=== PATIENT | female | born 1930 | race Caucasian/White ===

== ENCOUNTER → 2016-08-06 | Outpatient (CLI) | payer MEDICARE | LOC: WI 13:35 | PROVIDERS: ATTEND Internal Medicine | DX: Z12.31 Encounter for screening mammogram for malignant neoplasm of breast (principal) | CPT/HCPCS: 77067; G0202 ==

== ENCOUNTER → 2017-04-07 | Outpatient (CLI) | payer MEDICARE ==
[2017-04-07 17:39] LABS: ABSOLUTE EOSINOPHILS # (AUTO) 0.1 10^3/uL (0.0-0.6); ABSOLUTE LYMPHOCYTES (AUTO) 1.6 10^3/uL (0.5-4.7); ABSOLUTE MONOCYTES (AUTO) 0.4 10^3/uL (0.1-1.4); ABSOLUTE NEUT (AUTO) 4.3 10^3/uL (1.7-8.2); BASOPHILS % (AUTO) 0.5 % (0-2); HEMATOCRIT 25.2 % (36.0-47.0); HEMOGLOBIN 8.3 g/dL (12.0-15.5); HGB HCT DIFFERENCE -0.3; LYMPHOCYTES % (AUTO) 24.1 % (13-45); MEAN CORPUSCULAR HEMOGLOBIN 23.6 pg (27.0-33.4); MEAN CORPUSCULAR HGB CONC 32.8 g/dL (32.0-36.0); MEAN CORPUSCULAR VOLUME 72 fl (80-97); MONOCYTES % (AUTO) 6.5 % (3-13); RED BLOOD COUNT 3.51 10^6/uL (3.72-5.28); RED CELL DISTRIBUTION WIDTH 15.6 % (11.5-14.0); SEGMENTED NEUTROPHILS % (AUTO) 66.9 % (42-78); WHITE BLOOD COUNT 6.5 10^3/uL (4.0-10.5)
[2017-04-07 18:04] LABS: ALANINE AMINOTRANSFERASE 21 U/L (9-52); ALBUMIN 3.1 g/dL (3.5-5.0); ALKALINE PHOSPHATASE 85 U/L (38-126); ANION GAP 10 (5-19); ASPARTATE AMINO TRANSFERASE 14 U/L (14-36); BILIRUBIN,DIRECT 0.2 mg/dL (0.0-0.4); BILIRUBIN,TOTAL 0.2 mg/dL (0.2-1.3); BLOOD UREA NITROGEN 27 mg/dL (7-20); CALCIUM 9.1 mg/dL (8.4-10.2); CARBON DIOXIDE 24 mmol/L (22-30); CHLORIDE 110 mmol/L (98-107); CREATININE RESULT 1.08 mg/dL (0.52-1.25); GLUCOSE 86 mg/dL (75-110); POTASSIUM 4.8 mmol/L (3.6-5.0); SODIUM 144.2 mmol/L (137-145); TOTAL PROTEIN 5.6 g/dL (6.3-8.2)
== END ==
LOC: WC 15:46
PROVIDERS: ATTEND Nurse Practitioner Family
DX: L97.222 Non-pressure chronic ulcer of left calf with fat layer exposed (principal)
CPT/HCPCS: 36415; 80053; 85025

== ENCOUNTER → 2017-04-26 | Outpatient (CLI) | payer MEDICARE ==
--- NOTE | 2017-04-26 14:11 | XCELERA REPORT ---
[address] [address] Lower Extremity Venous Evaluation Name: DOMINICK LUQUE Age: 87 yrs Gender: Female : 1930 Patient Status: Outpatient Patient Location: Study Date: 04/26/2017 10:06 AM Procedure: A bilateral duplex scan of the lower extremity veins was performed. The evaluation included responses to compression and other maneuvers with patient in the supine and standing positions to assess venous insufficiency. Reason For Study: ULCER Ordering Physician: DORITA WEN Performed By: Karolyn Juan Right Sided Venous Evaluation Deep venous system evaluation shows patent veins with no obstruction or significant reflux identified. Sapheno Femoral junction: no reflux. Femoral vein reflux: no reflux. Greater Saphenous vein, Proximal thigh: reflux: no reflux. Greater Saphenous vein, Distal thigh: reflux:no reflux. Greater Saphenous vein, Mid below knee: reflux: 3.6 seconds, 3.4 mm diameter. Greater Saphenous vein, low below knee: reflux: 3.seconds, 3.5 mm diameter. No significant Perforators identified. Left Sided Venous Evaluation Deep venous system evaluatiion shows patent veins with no obstruction or significant reflux identified. Sapheno Femoral junction: no reflux. Femoral vein reflux: no reflux. Greater Saphenous vein, Proximal thigh: reflux: no reflux. Greater Saphenous vein, Distal thigh: reflux: no reflux. Greater Saphenous vein, Proximal below knee: reflux: no reflux. No significant Perforators identified. Leg subcutaneous edema noted. Interpretation Summary No duplex evidence of DVT or obstruction in the bilateral lower extremities. Significant reflux limited to the right below knee Greater Saphenous vein identified. : DORITA WEN > Benjamin Feliz
== END ==
LOC: SP 09:55
PROVIDERS: ATTEND Plastic Surgery
DX: L97.222 Non-pressure chronic ulcer of left calf with fat layer exposed (principal)
CPT/HCPCS: 93970

== ENCOUNTER → 2017-07-07 | Outpatient (CLI) | payer MEDICARE ==
[2017-07-07 13:36] LABS: ALANINE AMINOTRANSFERASE 18 U/L (9-52); ALBUMIN 3.1 g/dL (3.5-5.0); ALKALINE PHOSPHATASE 79 U/L (38-126); ANION GAP 8 (5-19); ASPARTATE AMINO TRANSFERASE 14 U/L (14-36); BLOOD UREA NITROGEN 42 mg/dL (7-20); CALCIUM 9.4 mg/dL (8.4-10.2); CARBON DIOXIDE 24 mmol/L (22-30); CHLORIDE 107 mmol/L (98-107); GLUCOSE 108 mg/dL (75-110); POTASSIUM 5.3 mmol/L (3.6-5.0); SODIUM 138.8 mmol/L (137-145); TOTAL PROTEIN 5.5 g/dL (6.3-8.2)
[2017-07-07 13:37] LABS: BILIRUBIN,TOTAL < 0.1 mg/dL (0.2-1.3)
== END ==
LOC: OD 12:02
PROVIDERS: ATTEND Plastic Surgery
DX: L97.222 Non-pressure chronic ulcer of left calf with fat layer exposed (principal)
CPT/HCPCS: 36415; 80053

== ENCOUNTER → 2017-08-24 | Outpatient (CLI) | payer MEDICARE ==
--- NOTE | 2017-08-25 14:32 | RADIOLOGY REPORT (SQ) ---
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 TECHNIQUE: Blood glucose level was verified. Above dose of FDG was injected intravenously. 2-D seg mented attenuation correction images were obtained from the base of the skull to the midthighs. Nonc ontrast CT images were obtained for attenuation correction and fusion with emission images. CT image s were performed without oral or intravenous contrast and are not sensitive for parenchymal lesions. A series of overlapping emission PET images were obtained. Images reviewed and manipulated at [facility] work station by the radiologist. Images stored on PACS. LIMITATIONS: None. FINDINGS: HEAD AND NECK: No areas of abnormal metabolic activity in the soft tissues of the head and neck. CHEST: No areas of abnormal metabolic activity in the chest. ABDOMEN AND PELVIS: On axial image 155, medial to the left lower quadrant ostomy, a well-circumscribe d 6 x 4.7 cm intermediate density non gastrointestinal tract structure is present, measuring 70 Houns field units. This most likely represents a hematoma. There is a rind of activity along its anterior edge with an SUV of 5. Along the distal sigmoid colon, a 5 cm long segment of increased activity is present without discrete mass. Sigmoid colon activity 5.2 SUV in this area. There is an anal mass measuring about 4 x 3 cm in size on axial image 223, with SUV of 8.8. A 1.4 x 1 cm left inguinal lymph node is present on axial image 207 with SUV 2.7. PROXIMAL LOWER EXTREMITIES: No areas of abnormal metabolic activity in the soft tissues of the lower extremities. BONES: No abnormal metabolic activity in the visualized skeleton. ADDITIONAL CT FINDINGS: Left lower quadrant ostomy. Grullon catheter in the bladder. Right total hip replacement OTHER: Liver background activity 1.8 SUV. Blood pool background activity 1.8 SUV IMPRESSION: No PET-CT evidence of widespread metastatic disease. Increased uptake at the anus corre lates with diagnosis of malignancy. TECHNICAL DOCUMENTATION: JOB ID: [id number]- All Rights Reserved Reading location - IP/workstation name: [email or web address]
== END ==
LOC: RAD 18:49
PROVIDERS: ATTEND Radiology Radiation Oncology
DX: C21.0 Malignant neoplasm of anus, unspecified (principal)
CPT/HCPCS: 78815; A9552

== ENCOUNTER 2017-10-04 20:56 | Inpatient (IN) | payer MEDICARE ==
[2017-10-04 21:30] LABS: AMORPHOUS SEDIMENT,URINE TRACE /HPF; APPEARANCE,URINE CLOUDY; BILIRUBIN,URINE NEGATIVE (NEGATIVE); COLOR,URINE YELLOW; GLUCOSE, URINE NEGATIVE (NEGATIVE); KETONES,URINE NEGATIVE (NEGATIVE); LEUKOCYTE ESTERASE,URINE LARGE (NEGATIVE); NITRITE,URINE NEGATIVE (NEGATIVE); PROTEIN,URINE NEGATIVE (NEGATIVE); URINE SPECIFIC GRAVITY 1.006; UROBILINOGEN,URINE NEGATIVE mg/dL (<2.0)
[2017-10-04 22:33] LABS: ABSOLUTE EOSINOPHILS # (AUTO) 0.1 10^3/uL (0.0-0.6); ABSOLUTE LYMPHOCYTES (AUTO) 1.8 10^3/uL (0.5-4.7); LYMPHOCYTES % (AUTO) 19.2 % (13-45); MEAN CORPUSCULAR VOLUME 81 fl (80-97); TOTAL CELLS COUNTED % (AUTO) 100 %
[2017-10-04 22:34] LABS: ALANINE AMINOTRANSFERASE 18 U/L (9-52); ALBUMIN 3.2 g/dL (3.5-5.0); ALKALINE PHOSPHATASE 94 U/L (38-126); ANION GAP 10 (5-19); ASPARTATE AMINO TRANSFERASE 14 U/L (14-36); BILIRUBIN,DIRECT 0.2 mg/dL (0.0-0.4); BILIRUBIN,TOTAL 0.3 mg/dL (0.2-1.3); BLOOD UREA NITROGEN 25 mg/dL (7-20); CALCIUM 10.3 mg/dL (8.4-10.2); CARBON DIOXIDE 28 mmol/L (22-30); CHLORIDE 102 mmol/L (98-107); GLUCOSE 111 mg/dL (75-110); LIPASE 44.4 U/L (23-300); POTASSIUM 3.6 mmol/L (3.6-5.0); SODIUM 139.7 mmol/L (137-145); TOTAL PROTEIN 6.1 g/dL (6.3-8.2)
[2017-10-04 22:39] LABS: HEMATOCRIT 35.5 % (36.0-47.0); RED BLOOD COUNT 4.39 10^6/uL (3.72-5.28); RED CELL DISTRIBUTION WIDTH 22.5 % (11.5-14.0); WHITE BLOOD COUNT 9.6 10^3/uL (4.0-10.5)
[2017-10-04 22:40] LABS: ABSOLUTE MONOCYTES (AUTO) 0.6 10^3/uL (0.1-1.4); ABSOLUTE NEUT (AUTO) 6.9 10^3/uL (1.7-8.2); BASOPHILS % (AUTO) 0.5 % (0-2); EOSINOPHILS % (AUTO) 1.3 % (0-6); MEAN CORPUSCULAR HEMOGLOBIN 27.4 pg (27.0-33.4); MEAN CORPUSCULAR HGB CONC 33.9 g/dL (32.0-36.0); MONOCYTES % (AUTO) 6.7 % (3-13); PLATELET COUNT 222 10^3/uL (150-450); SEGMENTED NEUTROPHILS % (AUTO) 72.3 % (42-78)
--- NOTE | 2017-10-04 22:44 | ER Document Report ---
ED General - General Chief Complaint: Abdominal Pain Stated Complaint: ABDOMINAL PAIN Time Seen by Provider: 10/04/17 22:43 Mode of Arrival: Medic Information source: Emergency Med Personnel Notes: 87-year-old lady with recent diagnosis of rectal cancer status post colectomy at [facility] who presented from rehab facility for evaluation of possible small bowel obstruction. According to rehab facility notes patient had one episode of vomiting yesterday with associated abdominal pain. According to patient she also had decreased stool output from the colostomy. Pain is lower abdominal, generalized, associated with one episode of emesis, severity of symptoms is 6 out of 10. TRAVEL OUTSIDE OF THE [place] IN LAST 30 DAYS: No - Related Data Allergies/Adverse Reactions: codeine Allergy (Verified 10/05/17 00:22) Penicillins Allergy (Verified 10/05/17 00:22) Past Medical History - Social History Smoking Status: Never Smoker Chew tobacco use (# tins/day): No Frequency of alcohol use: None Drug Abuse: None Family History: Hypertension Patient has suicidal ideation: No Patient has homicidal ideation: No - Past Medical History Cardiac Medical History: Reports: Hx Heart Attack, Hx Hypertension Pulmonary Medical History: Reports: Hx Asthma Renal/ Medical History: Denies: Hx Peritoneal Dialysis Skin Medical History: Reports Hx MRSA Infectious Medical History: Reports: Hx MRSA Past Surgical History: Reports: Hx Abdominal Surgery - colostomly Jul 2017, Hx Appendectomy, Hx Hysterectomy, Hx Orthopedic Surgery - R hip replacement, Hx Tonsillectomy Review of Systems - Review of Systems Notes: REVIEW OF SYSTEMS: CONSTITUTIONAL: -fevers, -chills EENT: -eye pain, -difficulty swallowing, -nasal congestion CARDIOVASCULAR: -chest pain, -syncope. RESPIRATORY: -cough, -SOB GASTROINTESTINAL: + Abdominal pain, -nausea, + vomiting, -diarrhea GENITOURINARY: -dysuria, -hematuria MUSCULOSKELETAL: -back pain, -neck pain SKIN: -rash or skin lesions. HEMATOLOGIC: -easy bruising or bleeding. LYMPHATIC: -swollen, enlarged glands. NEUROLOGICAL: -altered mental status or loss of consciousness, -headache, - neurologic symptoms PSYCHIATRIC: -anxiety, -depression. ALL OTHER SYSTEMS REVIEWED AND NEGATIVE. Physical Exam - Vital signs Vitals: Temp Pulse Resp BP Pulse Ox 98.9 F 56 L 16 182/60 H 97 10/04/17 21:00 10/04/17 21:00 10/04/17 21:00 10/04/17 21:00 10/04/17 21:00 - Notes Notes: Reviewed vital signs and nursing note as charted by RN. CONSTITUTIONAL: Alert, generalized edema HEAD: Normocephalic; atraumatic EYES: PERRL; Conjunctivae clear, sclerae non-icteric ENT: normal nose; NECK: Supple CARD: Regular rate and rhythm; no murmurs, no clicks, no rubs, no gallops; symmetric distal pulses RESP: Normal chest excursion without splinting or tachypnea; breath sounds clear and equal bilaterally ABD/GI: Normal bowel sounds; distended, patient has left colostomy with no stool , finger examination with notable stool within the colostomy site BACK: The back appears normal and is non-tender to palpation EXT: Normal ROM in all joints; non-tender to palpation; no cyanosis, no effusions, no edema SKIN: Normal color for age and race; warm; dry; good turgor; capillary refill < 2 seconds; no acute lesions noted NEURO: .Cranial nerves 3-12 intact. Motor strength 5/5 bilaterally. Sensation intact to touch bilaterally. No pronator drift. Finger to nose intact bilaterally PSYCH: The patient's mood and manner are appropriate. Grooming and personal hygiene are appropriate. Course - Re-evaluation Re-evalutation: Patient with history of rectal cancer status post colostomy here for evaluation of possible small bowel obstruction given abdominal pain, distention as well as vomiting We will obtain basic lab work including CBC, CMP, urinalysis CT scan abdomen and pelvis with oral and IV contrast Pain control with [place], IV hydration 10/05/17 01:35 CT scan consistent with acute small bowel obstruction Discussed the case with surgery on-call, Dr. Larry Cardoso he will evaluate patient at bedside Hold off on NG tube at present time 10/05/17 05:38 Patient was examined by Dr. Cardoso, agree that patient is not a good surgical candidate Recommended aggressive management of her constipation with enemas Recommended IV hydration admission to hospitalist for further management and possible palliative consultation Case discussed with hospitalist, , agree with admission - Vital Signs Vital signs: Temp Pulse Resp BP Pulse Ox 98.9 F 56 L 18 164/58 H 96 10/04/17 21:00 10/04/17 21:00 10/04/17 22:29 10/05/17 03:01 10/05/17 03:01 - Laboratory Result Diagrams: 10/04/17 21:45 10/04/17 21:45 Laboratory results interpreted by me: 10/04/17 10/04/17 10/04/17 21:13 21:45 21:45 Hct 35.5 L RDW 22.5 H BUN 25 H Est GFR (Non-Af Amer) 57 L Glucose 111 H Calcium 10.3 H Total Protein 6.1 L Albumin 3.2 L Urine Blood MODERATE H Ur Leukocyte Esterase LARGE H Discharge - Discharge Clinical Impression: SBO (small bowel obstruction) Disposition: ADMITTED INPATIENT Admitting Provider: Hospitalist Unit Admitted: Medical Floor
[2017-10-04 22:47] LABS: ANISOCYTOSIS 3+; HYPOCHROMASIA SLIGHT; OVALOCYTES 1+; PLATELET COMMENT ADEQUATE; POIKILOCYTOSIS 1+
[2017-10-04 22:48] LABS: PLATELET LARGE PRESENT
[2017-10-04] MEDS ORDERED: MORPHINE SULFATE 10 MG/ML INJ IV ONE (23:17)
[2017-10-04] MEDS ORDERED: HYDROCODONE/ACETAMINOPHEN 5-325 MG TABLET PO ONE (23:35)
[2017-10-04] MEDS ORDERED: PROMETHAZINE HCL INJ 25 MG/1 ML VIAL IV ONE (23:56)
[2017-10-05] MEDS ORDERED: LOSARTAN POTASSIUM 25 MG TABLET PO ONE (00:47)
--- NOTE | 2017-10-05 01:15 | RADIOLOGY REPORT (SQ) ---
EXAM DESCRIPTION: CT ABD/PELVIS WITH IV ORAL COMPLETED DATE/TIME: 10/04/2017 11:56 pm REASON FOR STUDY: abdominal pain COMPARISON: PET-CT from August. TECHNIQUE: CT scan of the abdomen and pelvis performed with intravenous and oral contrast using noah angelia scanning technique with dynamic intravenous contrast injection. Images reviewed with lung, soft t issue, and bone windows. Reconstructed coronal and sagittal MPR images reviewed. Delayed images for e valuation of the urinary system also acquired. All images stored on PACS. All CT scanners at this facility use dose modulation, iterative reconstruction, and/or weight based d osing when appropriate to reduce radiation dose to as low as reasonably achievable (ALARA). [facility]: Dose Right [facility]: CareDose [facility]: Dose Right [facility]: Teradose 4D [facility]: [email or web address] CONTRAST TYPE AND DOSE: contrast/concentration: Isovue 370.00 mg/ml; Total Contrast Delivered: 84.0 ml; Total Saline Delivered: 39.0 ml RENAL FUNCTION: Not available. RADIATION DOSE: CT Rad equipment meets quality standard of care and radiation dose reduction techniq ues were employed. CTDIvol: 16.2 mGy. DLP: 1574 mGy-cm.. LIMITATIONS: None. FINDINGS: LOWER CHEST: Mild left lower lobe subsegmental atelectasis and trace pleural fluid. LIVER: Normal size. No masses. No dilated ducts. SPLEEN: Normal size. No focal lesions. PANCREAS: No masses. No significant calcifications. No adjacent inflammation or peripancreatic fluid collections. Pancreatic duct not dilated. GALLBLADDER: No identified stones by CT criteria. No inflammatory changes to suggest cholecystitis. ADRENAL GLANDS: No significant masses or asymmetry. RIGHT KIDNEY AND URETER: No solid masses. No significant calcification. No hydronephrosis or hydroure ter. LEFT KIDNEY AND URETER: No solid masses. No significant calcification. No hydronephrosis or hydrouret er. AORTA AND VESSELS: Dense atherosclerotic aorta without aneurysm or dissection. Grossly patent major arterial structures. No venous clot detected. RETROPERITONEUM: No retroperitoneal adenopathy, hemorrhage or masses. BOWEL AND PERITONEAL CAVITY: Diffusely distended small bowel loops tracking into the lower abdomen an d pelvis. In the mid pelvis, there is abrupt transition point with subsequent decompressed loops of bowel. Please see axial image 65 and coronal image 27 and adjacent slices. Moderate stool throughou t the colon. No ascites or abnormal gas. The patient has a left lower quadrant colostomy. APPENDIX: Not visualized. PELVIS: Limited due to obscuring metallic artifact from right hip. Grullon catheter in place. ABDOMINAL WALL: No masses. No hernias. BONES: No significant or acute findings. OTHER: No other significant finding. IMPRESSION: 1. Small bowel obstruction. Transition point in the distal small bowel within the pelv is. TECHNICAL DOCUMENTATION: JOB ID: [id number] Quality ID # [id number]: Final reports with documentation of one or more dose reduction techniques (e.g., Au tomated exposure control, adjustment of the mA and/or kV according to patient size, use of iterative reconstruction technique) 2010 [employer]- All Rights Reserved Reading location - IP/workstation name: [email or web address]
[2017-10-05] MEDS ORDERED: NORMAL SALINE 1000 ML 1,000 ML IV ONE (02:19)
--- NOTE | 2017-10-05 02:46 | PDOC CONSULTATION ---
Consultation Consult Date: 10/05/17 Attending physician:: YENIFER KEITH Consult reason:: Bowel obstruction History of Present Illness Admission Date/PCP: IRAIS HOLMAN MD History of Present Illness: DOMINICK LUQUE is a 87 year old female Who is brought to the emergency department by ground rescue because of abdominal pain for several days and one episode of vomiting this morning. Patient is seen at a.m. Wednesday by Dr. Cardoso at the request of the emergency department because of possible bowel obstruction. The patient is not accompanied by anybody as her family is gone home. According to records, and patient's report, she has been at the [facility] for approximately 2 months. [facility] Some of those records are available for review. 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 She also has bilateral lower extremity lymphedema, bilateral ureteral dilatation, anasarca and malnutrition. There are other references to her having undergone a colon resection for sigmoid colon cancer but again this cannot be consistently corroborated by her medical records. The patient is unclear as to what surgery she has had. She states she had 5 surgeon see her at [facility]. Over the last several months she has been seen and also more hospital where she had a PET scan which showed no evidence of metastatic disease. It is unclear as to whether she seen oncology and radiation therapy. Discussions have been held with her and her family regarding CODE STATUS, levels of aggressiveness of care, and even palliative care. In the emergency department she underwent CT scan of the abdomen and pelvis which showed findings consistent with obstipation, possible small bowel obstruction with transition point in the pelvis. Surgery was consulted. Past Medical History Cardiac Medical History: Reports: Myocardial Infarction, Hypertension Pulmonary Medical History: Reports: Asthma Infectious Medical History: Reports: Methicillin-Resistant Staph Aureus Past Surgical History Past Surgical History: Reports: Appendectomy, Hysterectomy, Orthopedic Surgery - R hip replacement, Tonsillectomy Social History Smoking Status: Never Smoker Hx Recreational Drug Use: No Hx Prescription Drug Abuse: No Family History Family History: Hypertension Parental Family History Reviewed: Yes Children Family History Reviewed: Yes Sibling(s) Family History Reviewed.: Yes Medication/Allergy Home Medications: Sulfamethoxazole/Trimethoprim [Bactrim Ds Tablet] 1 each PO BID 10 Days #20 tablet 07/17/17 Allergies/Adverse Reactions: codeine Allergy (Verified 10/05/17 00:22) Penicillins Allergy (Verified 10/05/17 00:22) Review of Systems Eyes: ABSENT: visual disturbances Ears: ABSENT: hearing changes Genitourinary: PRESENT: other - Indwelling Grullon catheter Musculoskeletal: PRESENT: other - Severe scoliosis; patient has not walked in months Neurological: PRESENT: memory loss Physical Exam Vital Signs: Temp Pulse Resp BP Pulse Ox 98.9 F 56 L 18 189/93 H 95 10/04/17 21:00 10/04/17 21:00 10/04/17 22:29 10/05/17 01:31 10/05/17 02:00 Intake & Output 10/03/17 10/04/17 10/05/17 06:59 06:59 06:59 Weight 79.6 kg General appearance: PRESENT: mild distress Head exam: PRESENT: normocephalic Eye exam: PRESENT: EOMI Mouth exam: PRESENT: dry mucosa Neck exam: PRESENT: full ROM Respiratory exam: PRESENT: rhonchi Cardiovascular exam: PRESENT: RRR Pulses: PRESENT: normal carotid pulses, normal femoral pulses GI/Abdominal exam: PRESENT: other - Moderate distention; well-healed midline scar; ostomy appliance in place; bag removed; ostomy digitalize with lubricated index finger. There was some stricture going through the fascia which I opened up gently. Tolerated well Extremities exam: PRESENT: other - Indwelling catheter in place marked lower extremity edema; chronic lymphatic edema to the feet and ankles Psychiatric exam: PRESENT: appropriate affect Skin exam: PRESENT: warm, other - Anasarca Results Laboratory Results: 10/04/17 21:45 10/04/17 21:45 10/04/17 10/04/17 10/04/17 21:13 21:45 21:45 WBC 9.6 RBC 4.39 Hgb 12.0 Hct 35.5 L MCV 81 MCH 27.4 MCHC 33.9 RDW 22.5 H Plt Count 222 Seg Neutrophils % 72.3 Lymphocytes % 19.2 Monocytes % 6.7 Eosinophils % 1.3 Basophils % 0.5 Absolute Neutrophils 6.9 Absolute Lymphocytes 1.8 Absolute Monocytes 0.6 Absolute Eosinophils 0.1 Absolute Basophils 0.0 Sodium 139.7 Potassium 3.6 Chloride 102 Carbon Dioxide 28 Anion Gap 10 BUN 25 H Creatinine 0.93 Est GFR ( Amer) > 60 Est GFR (Non-Af Amer) 57 L Glucose 111 H Calcium 10.3 H Total Bilirubin 0.3 AST 14 ALT 18 Alkaline Phosphatase 94 Total Protein 6.1 L Albumin 3.2 L Lipase 44.4 Urine Color YELLOW Urine Appearance CLOUDY Urine pH 7.0 Ur Specific [place] 1.006 Urine Protein NEGATIVE Urine Glucose (UA) NEGATIVE Urine Ketones NEGATIVE Urine Blood MODERATE H Urine Nitrite NEGATIVE Ur Leukocyte Esterase LARGE H Urine WBC (Auto) >182 Urine RBC (Auto) 14 Impressions: Abdomen/Pelvis CT 10/04/17 00:00 IMPRESSION: 1. Small bowel obstruction. Transition point in the distal small bowel within the pelvis. Assessment & Plan - Diagnosis (1) Abdominal pain Qualifiers: Abdominal location: generalized Qualified Code(s): R10.84 - Generalized abdominal pain Is this a current diagnosis for this admission?: Yes Plan: Impression: Abdominal pain vomiting, clinically improved; physical exam, and radiographic imaging consistent with probable constipation although distal small bowel obstruction cannot be entirely ruled out This is an unfortunate 87-year-old white female, here in the emergency department by herself, resident of [place], reportedly full CODE STATUS, who cannot receive therapeutic care for her anal carcinoma because of previous radiation to the pelvis. Recommendations: 1. The patient does not deserve operative intervention at this time and hopefully will not need it hereafter. Suggested enemas, IV fluids in an attempt to rehydrate and clear her colon of stool. 2. I spoke with the hospitalist to admit the patient for further management. 3. Discussion needs to be had with patient, next of kin regarding move towards palliative care. (2) Squamous cell carcinoma of anus Is this a current diagnosis for this admission?: Yes (3) Dehydration Is this a current diagnosis for this admission?: Yes (4) Malnutrition Is this a current diagnosis for this admission?: Yes (5) Anasarca Is this a current diagnosis for this admission?: Yes (6) Bedridden Is this a current diagnosis for this admission?: Yes (7) Pelvic irradiation Is this a current diagnosis for this admission?: Yes - Time Time Spent: 50 to 70 Minutes Smoking Cessation Education: over 10 minutes Medications reviewed and adjusted accordingly: Yes Anticipated discharge: SNF - Inpatient Certification Based on my medical assessment, after consideration of the patient's comorbidities, presenting symptoms, or acuity I expect that the services needed warrant INPATIENT care.: Yes I certify that my determination is in accordance with my understanding of Medicare's requirements for reasonable and necessary INPATIENT services [42 CFR 412.3e].: Yes Medical Necessity: Need For IV Fluids, Other - Enemas
[2017-10-05] MEDS ORDERED: NORMAL SALINE 1000 ML 1,000 ML IV PRN (02:47)
[2017-10-05] MEDS ORDERED: NA PHOS,M-B/NA PHOS,DI-BA (ADULT) 133 ML ENEMA PR ONE (03:00)
[2017-10-05] MEDS ORDERED: ONDANSETRON HCL INJ/PF 4 MG/2 ML SDV IV PRN (03:02)
[2017-10-05] MEDS ORDERED: ACETAMINOPHEN 325 MG TABLET PO PRN (03:02)
--- NOTE | 2017-10-05 03:25 | PDOC H&P ---
History of Present Illness Admission Date/PCP: IRAIS HOLMAN MD History of Present Illness: DOMINICK LUQUE is a 87 year old female patient transferred from [facility] with chief complaint of abdominal pain of several days' duration. Patient has an episode of vomiting. 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 Her CT scan of the abdomen reported as findings consistent with obstipation, possible small bowel obstruction with transition point in the pelvis. ER attending consulted Dr. Larry Cardoso who is not convinced that that patient has small bowel obstruction but rather she has fecal impaction and he recommended enema. He recommended palliative care since patient is poor surgical candidate. Past Medical History Cardiac Medical History: Reports: Myocardial Infarction, Hypertension Pulmonary Medical History: Reports: Asthma Infectious Medical History: Reports: Methicillin-Resistant Staph Aureus Past Surgical History Past Surgical History: Reports: Appendectomy, Hysterectomy, Orthopedic Surgery - R hip replacement, Tonsillectomy Social History Smoking Status: Never Smoker Hx Recreational Drug Use: No Hx Prescription Drug Abuse: No - Advance Directive Resuscitation Status: Full Code Family History Family History: Hypertension Parental Family History Reviewed: Yes Children Family History Reviewed: Yes Sibling(s) Family History Reviewed.: Yes Medication/Allergy Home Medications: Sulfamethoxazole/Trimethoprim [Bactrim Ds Tablet] 1 each PO BID 10 Days #20 tablet 07/17/17 Allergies/Adverse Reactions: codeine Allergy (Verified 10/05/17 00:22) Penicillins Allergy (Verified 10/05/17 00:22) Review of Systems Constitutional: ABSENT: chills, fever(s), headache(s), weight gain, weight loss Eyes: ABSENT: visual disturbances Cardiovascular: ABSENT: chest pain, dyspnea on exertion, edema, orthropnea, palpitations Respiratory: ABSENT: cough, hemoptysis Gastrointestinal: PRESENT: as per HPI, vomiting Neurological: ABSENT: abnormal gait, abnormal speech, confusion, dizziness, focal weakness, syncope Psychiatric: ABSENT: anxiety, depression, homidical ideation, suicidal ideation Physical Exam Vital Signs: Temp Pulse Resp BP Pulse Ox 98.9 F 56 L 18 189/93 H 95 10/04/17 21:00 10/04/17 21:00 10/04/17 22:29 10/05/17 01:31 10/05/17 02:00 Intake & Output 10/03/17 10/04/17 10/05/17 06:59 06:59 06:59 Weight 79.6 kg General appearance: PRESENT: no acute distress Head exam: PRESENT: atraumatic, normocephalic Respiratory exam: PRESENT: clear to auscultation connie. ABSENT: rales, rhonchi, wheezes Cardiovascular exam: PRESENT: RRR. ABSENT: diastolic murmur, rubs, systolic murmur GI/Abdominal exam: PRESENT: distended, hypoactive bowel sounds Neurological exam: PRESENT: alert, awake, oriented to time, oriented to situation Psychiatric exam: PRESENT: normal mood Results Laboratory Results: 10/04/17 21:45 10/04/17 21:45 10/04/17 10/04/17 10/04/17 21:13 21:45 21:45 WBC 9.6 RBC 4.39 Hgb 12.0 Hct 35.5 L MCV 81 MCH 27.4 MCHC 33.9 RDW 22.5 H Plt Count 222 Seg Neutrophils % 72.3 Lymphocytes % 19.2 Monocytes % 6.7 Eosinophils % 1.3 Basophils % 0.5 Absolute Neutrophils 6.9 Absolute Lymphocytes 1.8 Absolute Monocytes 0.6 Absolute Eosinophils 0.1 Absolute Basophils 0.0 Sodium 139.7 Potassium 3.6 Chloride 102 Carbon Dioxide 28 Anion Gap 10 BUN 25 H Creatinine 0.93 Est GFR ( Amer) > 60 Est GFR (Non-Af Amer) 57 L Glucose 111 H Calcium 10.3 H Total Bilirubin 0.3 AST 14 ALT 18 Alkaline Phosphatase 94 Total Protein 6.1 L Albumin 3.2 L Lipase 44.4 Urine Color YELLOW Urine Appearance CLOUDY Urine pH 7.0 Ur Specific [place] 1.006 Urine Protein NEGATIVE Urine Glucose (UA) NEGATIVE Urine Ketones NEGATIVE Urine Blood MODERATE H Urine Nitrite NEGATIVE Ur Leukocyte Esterase LARGE H Urine WBC (Auto) >182 Urine RBC (Auto) 14 Impressions: Abdomen/Pelvis CT 10/04/17 00:00 IMPRESSION: 1. Small bowel obstruction. Transition point in the distal small bowel within the pelvis. Assessment & Plan - Diagnosis (1) Small bowel obstruction Is this a current diagnosis for this admission?: Yes Plan: Patient has questionable small bowel obstruction. Has been evaluated by surgeon and recommended an MRI. (2) Abdominal pain Qualifiers: Abdominal location: generalized Qualified Code(s): R10.84 - Generalized abdominal pain Is this a current diagnosis for this admission?: Yes Plan: Her abdominal pain is subsiding. (3) Squamous cell carcinoma of anus Is this a current diagnosis for this admission?: Yes Plan: Poor surgical candidate. Palliative care recommended (4) Dehydration Is this a current diagnosis for this admission?: Yes Plan: Gentle hydration. (5) Complicated UTI (urinary tract infection) Is this a current diagnosis for this admission?: Yes Plan: Patient has been started on Levaquin since she has allergy to penicillin. - Time Time Spent: 30 to 50 Minutes - Inpatient Certification Medical Necessity: Need Close Monitoring Due to Risk of Patient Decompensation, Need For IV Fluids, Need for IV Antibiotics
[2017-10-05] MEDS ORDERED: LEVOFLOXACIN 500 MG/D5W RTU 500 MG/100 ML RTUPB IV ONE (04:00)
[2017-10-05] MEDS: LANSOPRAZOLE 30 MG TAB.RAP.DR PO SCH (09:18)
[2017-10-05] MEDS: ENOXAPARIN SODIUM INJ 30 MG/0.3 ML DISP.SYRIN SUBCUT SCH (09:18)
[2017-10-05] MEDS ORDERED: ALBUTEROL SULFATE HFA (90 MCG/PUFF) 8 GM MDI (1 MDI/ER DISP) IH PRN (15:00)
[2017-10-05] MEDS ORDERED: ALBUTEROL SULFATE HFA (90 MCG/PUFF) 200 PUFF/8.5 GM MDI IH PRN (15:30)
[2017-10-05] MEDS ORDERED: HYDRALAZINE HCL INJ/PF 20 MG/1 ML SDV IV ONE (16:15)
[2017-10-05] MEDS: NORMAL SALINE 1000 ML 1,000 ML IV PRN (17:12)
[2017-10-05] MEDS: BUDESONIDE/FORMOTEROL 80-4.5 MCG 60 PUFF/6.9 GM MDI IH SCH (18:10)
--- NOTE | 2017-10-05 21:04 | PDOC PROGRESS REPORT ---
Subjective Progress Note for:: 10/05/17 Subjective:: Abdomen feels normal now. No abdominal pain no nausea vomiting patient is hungry. She has had good response with enemas through her ostomy. Reason For Visit: ABDOMINAL PAIN,DEHYDRATION,POSSIBLE SMALL BOWEL Physical Exam Vital Signs: Temp Pulse Resp BP Pulse Ox 98.2 F 59 L 19 154/51 H 100 10/05/17 19:07 10/05/17 19:07 10/05/17 19:07 10/05/17 19:07 10/05/17 19:07 Intake & Output 10/04/17 10/05/17 10/06/17 06:59 06:59 06:59 Intake Total 1375 Output Total 800 Balance 575 General appearance: PRESENT: no acute distress, cooperative GI/Abdominal exam: PRESENT: other - Soft, nondistended, nontender to palpation. Ostomy bag with liquid and semi-liquid stool. Results Impressions: Abdomen/Pelvis CT 10/04/17 00:00 IMPRESSION: 1. Small bowel obstruction. Transition point in the distal small bowel within the pelvis. Assessment & Plan - Diagnosis (1) Constipation Is this a current diagnosis for this admission?: Yes Plan: It appears that she has resolved constipation with good ostomy output now. She has had resolution of her abdominal pain. Recommend starting her on liquids advancing to solids as tolerated beginning tomorrow am. Call us for any concerns. With discharge patient home on MiraLAX twice daily..
[2017-10-06] MEDS: LEVOFLOXACIN 500 MG/D5W RTU 500 MG/100 ML RTUPB IV SCH (05:31)
[2017-10-06] MEDS: LANSOPRAZOLE 30 MG TAB.RAP.DR PO SCH (05:31)
[2017-10-06] MEDS: NORMAL SALINE 1000 ML 1,000 ML IV PRN (05:34)
[2017-10-06] MEDS: HYDRALAZINE HCL INJ/PF 20 MG/1 ML SDV IV PRN (06:05)
[2017-10-06 07:12] LABS: ANION GAP 8 (5-19); BLOOD UREA NITROGEN 19 mg/dL (7-20); CALCIUM 9.5 mg/dL (8.4-10.2); CARBON DIOXIDE 23 mmol/L (22-30); CHLORIDE 112 mmol/L (98-107); GLUCOSE 81 mg/dL (75-110); POTASSIUM 3.5 mmol/L (3.6-5.0); SODIUM 143.2 mmol/L (137-145)
[2017-10-06 07:13] LABS: ABSOLUTE EOSINOPHILS # (AUTO) 0.2 10^3/uL (0.0-0.6); ABSOLUTE LYMPHOCYTES (AUTO) 1.1 10^3/uL (0.5-4.7); ABSOLUTE MONOCYTES (AUTO) 0.4 10^3/uL (0.1-1.4); ABSOLUTE NEUT (AUTO) 3.6 10^3/uL (1.7-8.2); BASOPHILS % (AUTO) 0.9 % (0-2); EOSINOPHILS % (AUTO) 3.8 % (0-6); HEMATOCRIT 32.6 % (36.0-47.0); HEMOGLOBIN 11.1 g/dL (12.0-15.5); LYMPHOCYTES % (AUTO) 20.1 % (13-45); MEAN CORPUSCULAR HEMOGLOBIN 27.5 pg (27.0-33.4); MEAN CORPUSCULAR HGB CONC 34.1 g/dL (32.0-36.0); MEAN CORPUSCULAR VOLUME 81 fl (80-97); MONOCYTES % (AUTO) 7.8 % (3-13); PLATELET COUNT 177 10^3/uL (150-450); RED BLOOD COUNT 4.03 10^6/uL (3.72-5.28); SEGMENTED NEUTROPHILS % (AUTO) 67.4 % (42-78); TOTAL CELLS COUNTED % (AUTO) 100 %; WHITE BLOOD COUNT 5.3 10^3/uL (4.0-10.5)
[2017-10-06 08:07] LABS: ANISOCYTOSIS 3+; OVALOCYTES 1+; PLATELET COMMENT ADEQUATE; POIKILOCYTOSIS 1+
[2017-10-06] MEDS: LOSARTAN POTASSIUM 25 MG TABLET PO SCH (09:27)
[2017-10-06] MEDS: ENOXAPARIN SODIUM INJ 30 MG/0.3 ML DISP.SYRIN SUBCUT SCH (09:27)
[2017-10-06] MEDS: BUDESONIDE/FORMOTEROL 80-4.5 MCG 60 PUFF/6.9 GM MDI IH SCH ×2 (09:27→17:44)
[2017-10-06] MEDS ORDERED: NORMAL SALINE 1000 ML 1,000 ML IV PRN (10:24)
--- NOTE | 2017-10-06 16:43 | PDOC PROGRESS REPORT ---
Subjective Progress Note for:: 10/06/17 Subjective:: Patient was admitted with abdominal pain associated with nausea and vomiting of several days' duration. She was seen by the surgeon and she was thought to have a small bowel obstruction. This has been treated conservatively with relief of obstruction. She has been started on a clear liquid diet which is to be advanced as tolerated. She is currently having some loose stool from her ostomy. There is no more nausea and vomiting and abdominal pain is resolved Reason For Visit: ABDOMINAL PAIN,DEHYDRATION,POSSIBLE SMALL BOWEL Physical Exam Vital Signs: Temp Pulse Resp BP Pulse Ox 97.9 F 53 L 17 169/57 H 100 10/06/17 15:46 10/06/17 15:46 10/06/17 15:46 10/06/17 15:46 10/06/17 15:46 Intake & Output 10/05/17 10/06/17 10/07/17 06:59 06:59 06:59 Intake Total 1875 Output Total 1550 400 Balance 325 -400 Weight 83.1 kg General appearance: PRESENT: no acute distress, well-developed, well-nourished Head exam: PRESENT: atraumatic, normocephalic Eye exam: PRESENT: conjunctiva pink, EOMI, PERRLA. ABSENT: scleral icterus Ear exam: PRESENT: normal external ear exam Mouth exam: PRESENT: moist, tongue midline Neck exam: ABSENT: carotid bruit, JVD, lymphadenopathy, thyromegaly Respiratory exam: PRESENT: clear to auscultation connie. ABSENT: rales, rhonchi, wheezes Cardiovascular exam: PRESENT: RRR. ABSENT: diastolic murmur, rubs, systolic murmur Pulses: PRESENT: normal dorsalis pedis pul Vascular exam: PRESENT: normal capillary refill GI/Abdominal exam: PRESENT: normal bowel sounds, soft, other - liquid stool in ostomy bag. ABSENT: distended, mass, organolmegaly, rebound, tenderness Rectal exam: PRESENT: deferred Extremities exam: PRESENT: full ROM. ABSENT: calf tenderness, clubbing, pedal edema Neurological exam: PRESENT: alert, awake, oriented to person, oriented to place , oriented to time, oriented to situation, CN II-XII grossly intact. ABSENT: motor sensory deficit Psychiatric exam: PRESENT: appropriate affect, normal mood. ABSENT: homicidal ideation, suicidal ideation Skin exam: PRESENT: dry, intact, warm. ABSENT: cyanosis, rash Results Laboratory Results: 10/06/17 06:19 10/06/17 06:19 10/06/17 10/06/17 06:19 06:19 WBC 5.3 RBC 4.03 Hgb 11.1 L Hct 32.6 L MCV 81 MCH 27.5 MCHC 34.1 RDW 22.0 H Plt Count 177 Seg Neutrophils % 67.4 Lymphocytes % 20.1 Monocytes % 7.8 Eosinophils % 3.8 Basophils % 0.9 Absolute Neutrophils 3.6 Absolute Lymphocytes 1.1 Absolute Monocytes 0.4 Absolute Eosinophils 0.2 Absolute Basophils 0.0 Sodium 143.2 Potassium 3.5 L Chloride 112 H Carbon Dioxide 23 Anion Gap 8 BUN 19 Creatinine 0.76 Est GFR ( Amer) > 60 Est GFR (Non-Af Amer) > 60 Glucose 81 Calcium 9.5 Impressions: Abdomen/Pelvis CT 10/04/17 00:00 IMPRESSION: 1. Small bowel obstruction. Transition point in the distal small bowel within the pelvis. Assessment & Plan - Diagnosis (1) Small bowel obstruction Is this a current diagnosis for this admission?: Yes Plan: Resolved (2) Squamous cell carcinoma of anus Is this a current diagnosis for this admission?: Yes (3) Complicated UTI (urinary tract infection) Is this a current diagnosis for this admission?: Yes Plan: On Levaquin. Unfortunately no urine culture obtained (4) Dehydration Is this a current diagnosis for this admission?: Yes Plan: Resolved - Time Time Spent with patient: 15-24 minutes Medications reviewed and adjusted accordingly: Yes Within: within 48 hours - Inpatient Certification Based on my medical assessment, after consideration of the patient's comorbidities, presenting symptoms, or acuity I expect that the services needed warrant INPATIENT care.: Yes Medical Necessity: Need For IV Fluids, Need for IV Antibiotics
[2017-10-07 06:05] LABS: ABSOLUTE EOSINOPHILS # (AUTO) 0.2 10^3/uL (0.0-0.6); ABSOLUTE LYMPHOCYTES (AUTO) 1.3 10^3/uL (0.5-4.7); ABSOLUTE MONOCYTES (AUTO) 0.6 10^3/uL (0.1-1.4); ABSOLUTE NEUT (AUTO) 3.6 10^3/uL (1.7-8.2); BASOPHILS % (AUTO) 0.7 % (0-2); HEMATOCRIT 32.2 % (36.0-47.0); LYMPHOCYTES % (AUTO) 22.2 % (13-45); MEAN CORPUSCULAR HEMOGLOBIN 27.5 pg (27.0-33.4); MEAN CORPUSCULAR VOLUME 81 fl (80-97); MONOCYTES % (AUTO) 10.5 % (3-13); PLATELET COUNT 182 10^3/uL (150-450); RED BLOOD COUNT 3.99 10^6/uL (3.72-5.28); RED CELL DISTRIBUTION WIDTH 15.8 % (11.5-14.0); SEGMENTED NEUTROPHILS % (AUTO) 62.6 % (42-78); TOTAL CELLS COUNTED % (AUTO) 100 %; WHITE BLOOD COUNT 5.7 10^3/uL (4.0-10.5)
[2017-10-07 06:16] LABS: ANION GAP 7 (5-19); BLOOD UREA NITROGEN 20 mg/dL (7-20); CALCIUM 9.5 mg/dL (8.4-10.2); CARBON DIOXIDE 24 mmol/L (22-30); CHLORIDE 112 mmol/L (98-107); GLUCOSE 98 mg/dL (75-110); POTASSIUM 3.2 mmol/L (3.6-5.0); SODIUM 142.7 mmol/L (137-145)
[2017-10-07] MEDS: LANSOPRAZOLE 30 MG TAB.RAP.DR PO SCH (06:16)
[2017-10-07] MEDS: LEVOFLOXACIN 500 MG/D5W RTU 500 MG/100 ML RTUPB IV SCH (06:16)
[2017-10-07 06:56] LABS: ANISOCYTOSIS 1+; HYPOCHROMASIA SLIGHT; OVALOCYTES SLIGHT; PLATELET COMMENT ADEQUATE; POIKILOCYTOSIS SLIGHT; TEAR DROP CELLS SLIGHT; TOXIC GRANULATION SLIGHT
[2017-10-07] MEDS: LOSARTAN POTASSIUM 25 MG TABLET PO SCH (09:19)
[2017-10-07] MEDS: BUDESONIDE/FORMOTEROL 80-4.5 MCG 60 PUFF/6.9 GM MDI IH SCH ×2 (09:19→17:14)
[2017-10-07] MEDS: ENOXAPARIN SODIUM INJ 30 MG/0.3 ML DISP.SYRIN SUBCUT SCH (09:19)
[2017-10-07] MEDS: HYDRALAZINE HCL INJ/PF 20 MG/1 ML SDV IV PRN (13:30)
--- NOTE | 2017-10-07 15:24 | Physician Advisory Note ---
Physician Advisor ProgressNote .: Pursuant to the plan for [facility], I have reviewed the medical record for this patient. Physician Advisor Statement: Please consider documenting, if you agree: 1. For dx "SBO", please state whether "complete" or "incomplete" (lr if you decide pt instead had "paralytic ileus", or other dx, please state that). 2. "Anemia, suspect due to " (chronic GI blood loss due to ____? nutritional ___ deficiency?) Thanks! CK
--- NOTE | 2017-10-07 17:01 | PDOC PROGRESS REPORT ---
Subjective Progress Note for:: 10/07/17 Subjective:: Ms. Ramos is a very pleasant 87 years old female patient transferred from [facility] after she experienced abdominal pain, nausea and vomiting. Her CT scan shows obstipation and possible small bowel obstruction. Patient has been managed conservatively and has been improving so far. This morning I seen and examined the patient at the bedside. She is awake alert and oriented. She is not in pain or distress. Her diet is advancing by her surgeon and she is tolerating well. Reason For Visit: ABDOMINAL PAIN,DEHYDRATION,POSSIBLE SMALL BOWEL Physical Exam Vital Signs: Temp Pulse Resp BP Pulse Ox 97.3 F 75 18 167/61 H 95 10/07/17 15:29 10/07/17 15:29 10/07/17 15:29 10/07/17 15:29 10/07/17 15:29 Intake & Output 10/06/17 10/07/17 10/08/17 06:59 06:59 06:59 Intake Total 1875 2178 118 Output Total 5691 978 8649 Balance 325 1428 -882 Weight 83.1 kg 83 kg General appearance: PRESENT: no acute distress, well-developed, well-nourished Eye exam: PRESENT: conjunctiva pink, EOMI, PERRLA. ABSENT: scleral icterus Neck exam: ABSENT: carotid bruit, JVD, lymphadenopathy, thyromegaly Respiratory exam: PRESENT: clear to auscultation connie. ABSENT: rales, rhonchi, wheezes Cardiovascular exam: PRESENT: RRR. ABSENT: diastolic murmur, rubs, systolic murmur GI/Abdominal exam: PRESENT: normal bowel sounds, soft, other - Colostomy in situ and functional. ABSENT: distended, guarding, mass, organolmegaly, rebound , tenderness Neurological exam: PRESENT: alert, awake, oriented to person, oriented to place , oriented to time, oriented to situation, CN II-XII grossly intact. ABSENT: motor sensory deficit Psychiatric exam: PRESENT: appropriate affect, normal mood. ABSENT: homicidal ideation, suicidal ideation Results Laboratory Results: 10/07/17 05:44 10/07/17 05:44 10/07/17 10/07/17 05:44 05:44 WBC 5.7 RBC 3.99 Hgb 11.0 L Hct 32.2 L MCV 81 MCH 27.5 MCHC 34.0 RDW 15.8 H Plt Count 182 Seg Neutrophils % 62.6 Lymphocytes % 22.2 Monocytes % 10.5 Eosinophils % 4.0 Basophils % 0.7 Absolute Neutrophils 3.6 Absolute Lymphocytes 1.3 Absolute Monocytes 0.6 Absolute Eosinophils 0.2 Absolute Basophils 0.0 Sodium 142.7 Potassium 3.2 L Chloride 112 H Carbon Dioxide 24 Anion Gap 7 BUN 20 Creatinine 0.74 Est GFR ( Amer) > 60 Est GFR (Non-Af Amer) > 60 Glucose 98 Calcium 9.5 Impressions: Abdomen/Pelvis CT 10/04/17 00:00 IMPRESSION: 1. Small bowel obstruction. Transition point in the distal small bowel within the pelvis. Assessment & Plan - Diagnosis (1) Small bowel obstruction Is this a current diagnosis for this admission?: Yes Plan: Patient has partial small bowel obstruction and impacted stool which has been managed conservatively and has been improving. Patient has been started on solid diet she tolerates with and liquid stool is coming through colostomy (2) Abdominal pain Qualifiers: Abdominal location: generalized Qualified Code(s): R10.84 - Generalized abdominal pain Is this a current diagnosis for this admission?: Yes Plan: Has resolved (3) Squamous cell carcinoma of anus Is this a current diagnosis for this admission?: Yes Plan: Poor surgical candidate. Palliative care recommended (4) Dehydration Is this a current diagnosis for this admission?: Yes Plan: Has resolved (5) Complicated UTI (urinary tract infection) Is this a current diagnosis for this admission?: Yes Plan: Treated (6) Anemia Is this a current diagnosis for this admission?: Yes Plan: The of chronic disease. - Time Time Spent with patient: 25-34 minutes
[2017-10-07] MEDS ORDERED: POTASSIUM CHLORIDE 10 MEQ TABLET.SA PO ONE (19:30)
[2017-10-08 06:02] LABS: ANION GAP 7 (5-19); BLOOD UREA NITROGEN 22 mg/dL (7-20); CALCIUM 9.4 mg/dL (8.4-10.2); CARBON DIOXIDE 24 mmol/L (22-30); CHLORIDE 113 mmol/L (98-107); GLUCOSE 118 mg/dL (75-110); POTASSIUM 4.1 mmol/L (3.6-5.0); SODIUM 144.1 mmol/L (137-145)
[2017-10-08 06:03] LABS: ABSOLUTE EOSINOPHILS # (AUTO) 0.2 10^3/uL (0.0-0.6); ABSOLUTE LYMPHOCYTES (AUTO) 1.2 10^3/uL (0.5-4.7); ABSOLUTE MONOCYTES (AUTO) 0.6 10^3/uL (0.1-1.4); ABSOLUTE NEUT (AUTO) 4.4 10^3/uL (1.7-8.2); BASOPHILS % (AUTO) 0.5 % (0-2); EOSINOPHILS % (AUTO) 3.2 % (0-6); HEMOGLOBIN 10.9 g/dL (12.0-15.5); LYMPHOCYTES % (AUTO) 18.8 % (13-45); MEAN CORPUSCULAR HEMOGLOBIN 27.4 pg (27.0-33.4); MEAN CORPUSCULAR VOLUME 81 fl (80-97); MONOCYTES % (AUTO) 9.6 % (3-13); PLATELET COUNT 178 10^3/uL (150-450); RED BLOOD COUNT 3.97 10^6/uL (3.72-5.28); RED CELL DISTRIBUTION WIDTH 15.1 % (11.5-14.0); SEGMENTED NEUTROPHILS % (AUTO) 67.9 % (42-78); TOTAL CELLS COUNTED % (AUTO) 100 %; WHITE BLOOD COUNT 6.4 10^3/uL (4.0-10.5)
[2017-10-08 06:16] LABS: ANISOCYTOSIS SLIGHT; OVALOCYTES SLIGHT; PLATELET COMMENT ADEQUATE; POIKILOCYTOSIS SLIGHT; TEAR DROP CELLS SLIGHT; TOXIC GRANULATION SLIGHT
[2017-10-08] MEDS: LEVOFLOXACIN 500 MG/D5W RTU 500 MG/100 ML RTUPB IV SCH (06:33)
[2017-10-08] MEDS: HYDRALAZINE HCL INJ/PF 20 MG/1 ML SDV IV PRN ×2 (06:37→20:51)
[2017-10-08] MEDS: LANSOPRAZOLE 30 MG TAB.RAP.DR PO SCH (06:37)
[2017-10-08] MEDS: LOSARTAN POTASSIUM 25 MG TABLET PO SCH (09:46)
[2017-10-08] MEDS: BUDESONIDE/FORMOTEROL 80-4.5 MCG 60 PUFF/6.9 GM MDI IH SCH ×2 (09:46→17:30)
[2017-10-08] MEDS: ENOXAPARIN SODIUM INJ 30 MG/0.3 ML DISP.SYRIN SUBCUT SCH (09:46)
--- NOTE | 2017-10-08 13:54 | PDOC TRANSFER SUMMARY ---
General - Admit/Disc Date/PCP Admission Date/Primary Care Provider: 10/05/17 03:42 IRAIS HOLMAN MD Discharge Date: 10/08/17 - Discharge Diagnosis (1) Small bowel obstruction Is this a current diagnosis for this admission?: Yes (2) Abdominal pain Is this a current diagnosis for this admission?: Yes (3) Squamous cell carcinoma of anus Is this a current diagnosis for this admission?: Yes (4) Dehydration Is this a current diagnosis for this admission?: Yes (5) Complicated UTI (urinary tract infection) Is this a current diagnosis for this admission?: Yes (6) Anemia Is this a current diagnosis for this admission?: Yes - Additional Information Resuscitation Status: Full Code Discharge Diet: Regular Discharge Activity: Activity As Tolerated Home Medications: Acetaminophen 650 mg PO Q6HP PRN 10/05/17 Albuterol Sulfate [Proair HFA] 2 puff IH QIDP PRN 10/05/17 Budesonide/Formoterol Fumarate [Symbicort HFA 80-4.5 mcg Inhaler 6.9 gm] 2 puff IH BID 10/05/17 Docusate Sodium [Colace 100 mg Capsule] 100 mg PO BID 10/05/17 Ergocalciferol (Vitamin D2) [Drisdol 50,000 unit (1.25MG) Capsule] 50,000 units PO TH@1000 10/05/17 Losartan Potassium [Cozaar 25 mg Tablet] 25 mg PO DAILY 10/05/17 Multivit,Stress Formula/Zinc [Stress Formula with Zinc Tab] 1 tab PO DAILY 10/05 Oxycodone HCl [Oxy-Ir 5 mg Tablet] 2.5 mg PO Q4HP PRN 10/05/17 Pantoprazole Sodium 40 mg PO DAILY 10/05/17 Polyethylene Glycol 3350 [Miralax Powder 17 gm/Packet] 17 gm PO QID 10/05/17 Potassium Chloride [Klor-Con 10] 10 meq PO DAILY 10/05/17 Tamsulosin HCl [Flomax 0.4 mg Cap.sr] 0.4 mg PO QPM 10/05/17 History of Present Illness Admission Date/PCP: 10/05/17 03:42 IRAIS HOLMAN MD History of Present Illness: DOMINICK LUQUE is a 87 year old female patient transferred from [facility] with chief complaint of abdominal pain of several days' duration. Patient has an episode of vomiting. 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 Her CT scan of the abdomen reported as findings consistent with obstipation, possible small bowel obstruction with transition point in the pelvis. ER attending consulted Dr. Larry Cardoso who is not convinced that that patient has small bowel obstruction but rather she has fecal impaction and he recommended enema. He recommended palliative care since patient is poor surgical candidate. Hospital Course Hospital Course: Patient has been manged concervatively NPO,with iv fluids for dehydration and enema for constipation. She also completed 3 days course of Levaquin for complicated UTI. her condtion improved her diet advanced to solid and she tolerates well.Today on the day of discharged , I seen examined the patient at bed side. She is awake alert and oriented.I will continue the rest of her home medicationes. Physical Exam Vital Signs: Temp Pulse Resp BP Pulse Ox 97.5 F 67 14 169/64 H 98 10/08/17 11:20 10/08/17 11:20 10/08/17 11:20 10/08/17 11:20 10/08/17 11:20 Intake & Output 10/07/17 10/08/17 10/09/17 06:59 06:59 06:59 Intake Total 2178 1368 581 Output Total 750 1650 1450 Balance 8992 -282 -989 Weight 83 kg 83.4 kg General appearance: PRESENT: no acute distress Head exam: PRESENT: atraumatic, normocephalic Ear exam: PRESENT: normal external ear exam Neck exam: ABSENT: carotid bruit, JVD, lymphadenopathy, thyromegaly Respiratory exam: PRESENT: clear to auscultation connie. ABSENT: rales, rhonchi, wheezes Cardiovascular exam: PRESENT: RRR. ABSENT: diastolic murmur, rubs, systolic murmur GI/Abdominal exam: PRESENT: normal bowel sounds, soft, other - colostomy functional.. ABSENT: distended, guarding, mass, organolmegaly, rebound, tenderness Results Laboratory Results: 10/08/17 05:20 10/08/17 05:20 10/07/17 10/08/17 10/08/17 05:44 05:20 05:20 WBC 5.7 6.4 RBC 3.99 3.97 Hgb 11.0 L 10.9 L Hct 32.2 L 32.0 L MCV 81 81 MCH 27.5 27.4 MCHC 34.0 34.0 RDW 15.8 H 15.1 H Plt Count 182 178 Seg Neutrophils % 62.6 67.9 Lymphocytes % 22.2 18.8 Monocytes % 10.5 9.6 Eosinophils % 4.0 3.2 Basophils % 0.7 0.5 Absolute Neutrophils 3.6 4.4 Absolute Lymphocytes 1.3 1.2 Absolute Monocytes 0.6 0.6 Absolute Eosinophils 0.2 0.2 Absolute Basophils 0.0 0.0 Sodium 144.1 Potassium 4.1 Chloride 113 H Carbon Dioxide 24 Anion Gap 7 BUN 22 H Creatinine 0.79 Est GFR ( Amer) > 60 Est GFR (Non-Af Amer) > 60 Glucose 118 H Calcium 9.4 Impressions: Abdomen/Pelvis CT 10/04/17 00:00 IMPRESSION: 1. Small bowel obstruction. Transition point in the distal small bowel within the pelvis. Qualifiers - * PATIENT BEING DISCHARGED WITH ANY OF THE FOLLOWING DIAGNOSIS: No
[2017-10-08] MEDS ORDERED: NITROGLYCERIN 2% OINTMENT 1 GM PACKET ONE (19:50)
[2017-10-08] MEDS ORDERED: NITROGLYCERIN 2% OINTMENT 1 GM PACKET TP ONE (20:30)
[2017-10-09] MEDS: LANSOPRAZOLE 30 MG TAB.RAP.DR PO SCH (06:29)
[2017-10-09] MEDS: LEVOFLOXACIN 500 MG/D5W RTU 500 MG/100 ML RTUPB IV SCH (06:29)
[2017-10-09] MEDS: LOSARTAN POTASSIUM 25 MG TABLET PO SCH (09:40)
[2017-10-09] MEDS: ENOXAPARIN SODIUM INJ 30 MG/0.3 ML DISP.SYRIN SUBCUT SCH (09:42)
[2017-10-09] MEDS: BUDESONIDE/FORMOTEROL 80-4.5 MCG 60 PUFF/6.9 GM MDI IH SCH (09:54)
[2017-10-09] MEDS ORDERED: METOPROLOL TARTRATE 50 MG TABLET PO ONE (12:30)
--- NOTE | 2017-10-09 12:46 | Progress Note ---
Provider Note Provider Note: This is an addendum to the discharge summary by myself dictated for Mrs. Nancy Ramos. Patient supposed to be discharged yesterday but she kept behind since her blood pressure was not adequately controlled. Patient has been given hydralazine and I started her also on metoprolol 50 mg twice daily. Her latest blood pressure is 157/60 otherwise patient is clinically stable she does not have any new complaint this and she is stable enough to be discharged.
[2017-10-09] MEDS: HYDRALAZINE HCL INJ/PF 20 MG/1 ML SDV IV PRN (15:13)
[2017-10-09 16:38] VITALS: BP 148/59
--- NOTE | 2017-11-04 18:08 | Progress Note ---
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
== END 2017-10-09 16:15 | DRG 389 ==
LOC: ER 20:56 → EH 10-05 03:42 → 3S 10-05 06:30
PROVIDERS: ADMIT Internal Medicine; ATTEND Internal Medicine
DX: K56.600 Partial intestinal obstruction, unspecified as to cause (principal); N39.0 Urinary tract infection, site not specified; C78.5 Secondary malignant neoplasm of large intestine and rectum; K56.41 Fecal impaction; E86.0 Dehydration; I10 Essential (primary) hypertension; D63.0 Anemia in neoplastic disease; M41.9 Scoliosis, unspecified; J45.909 Unspecified asthma, uncomplicated; Z86.14 Personal history of Methicillin resistant Staphylococcus aureus infection; Z88.0 Allergy status to penicillin; Z88.6 Allergy status to analgesic agent; I25.2 Old myocardial infarction; Z93.3 Colostomy status; Z82.49 Family history of ischemic heart disease and other diseases of the circulatory system; Z90.49 Acquired absence of other specified parts of digestive tract; Z90.710 Acquired absence of both cervix and uterus; Z96.643 Presence of artificial hip joint, bilateral; Z74.01 Bed confinement status
CPT/HCPCS: 36415; 74177; 80048; 80053; 81001; 83690; 85025; 87040; 87086; 87088; 87186; 96361; 96374; 99285; J0360; J1650; J1956; J2550; J3490; J7030

== ENCOUNTER → 2018-05-03 | Outpatient (CLI) | payer MEDICARE, MEDICAID ==
--- NOTE | 2018-05-04 09:48 | RADIOLOGY REPORT (SQ) ---
EXAM DESCRIPTION: PET CT SKULL/THIGH COMPLETED DATE/TIME: 05/03/2018 9:42 pm REASON FOR STUDY: C21.0 MALIGNANT NEOPLASM OF ANUS, UNSPECIFIED C21.0 MALIGNANT NEOPLASM OF ANUS, U NSPECIFIED COMPARISON: 08/24/2017 RADIONUCLIDE AND DOSE: 10 mCi F18 FDG The route of agent administration: Intravenous FASTING BLOOD SUGAR: 103 mg/dl CONTRAST TYPE AND DOSE: No CT contrast given. TECHNIQUE: Blood glucose level was verified. Above dose of FDG was injected intravenously. 2-D seg mented attenuation correction images were obtained from the base of the skull to the midthighs. Nonc ontrast CT images were obtained for attenuation correction and fusion with emission images. CT image s were performed without oral or intravenous contrast and are not sensitive for parenchymal lesions. A series of overlapping emission PET images were obtained. Images reviewed and manipulated at [facility] work station by the radiologist. Images stored on PACS. LIMITATIONS: None. FINDINGS: HEAD AND NECK: No areas of abnormal metabolic activity in the soft tissues of the head and neck. CHEST: No areas of abnormal metabolic activity in the chest. ABDOMEN AND PELVIS: There has been resolution of previously seen intermediate density area adjacent t o the left lower quadrant ostomy, likely resolving hematoma. There is persistent area of activity al marino the distal sigmoid colon measuring approximately 5 cm in length with increased metabolic activity (max SUV 7.8, average 4.9). Again seen is the area that avid activity at the level of the anus, mil dly decreased in conspicuity on CT images. The area demonstrates avid FDG uptake (max SUV 10.4, aver age 5.3), previously SUVs of 8.8. Mildly increased size of the left inguinal lymph node measuring 14 x 12 mm, (max SUV 3.6, average 2.6). No new areas of focal abnormal metabolic activity in the abdom en or pelvis. Expected physiologic activity is present in the genitourinary system and bowel. Asymm etric diffuse activity within the right psoas and iliacus muscles likely secondary to use. PROXIMAL LOWER EXTREMITIES: No focal areas of abnormal uptake in the soft tissues of the bilateral l ower extremities. Diffuse uptake in the bilateral anterior thigh musculature. BONES: No abnormal metabolic activity in the visualized skeleton. ADDITIONAL CT FINDINGS: No evidence of acute process. Scattered coronary atherosclerosis. Postsurgi angelia changes with left lower quadrant ostomy. Multiple loops of bowel with gas fluid levels without e vidence of high-grade obstruction. Scattered aortoiliac atherosclerosis. Partially evaluated right hip arthroplasty. Bilateral lower extremity edema. IMPRESSION: 1. Persistent increased uptake at the anus compatible with given history of malignancy. 2. Persistent avid FDG uptake within the distal sigmoid colon, not significantly changed from prior and suspicious for additional area of colonic disease. 3. Mildly increased size of the left inguinal lymph node without definite abnormal uptake. TECHNICAL DOCUMENTATION: JOB ID: [id number] [employer]- All Rights Reserved Reading location - IP/workstation name: [email or web address]
== END ==
LOC: RAD 18:44
PROVIDERS: ATTEND Family Medicine
DX: C21.0 Malignant neoplasm of anus, unspecified (principal)
CPT/HCPCS: 78815; A9552

== ENCOUNTER 2018-07-03 11:33 | Emergency (ER) | payer MEDICARE, MEDICAID ==
[2018-07-03] MEDS ORDERED: FUROSEMIDE 20 MG TABLET PO ONE (13:01)
[2018-07-03 13:43] LABS: ABSOLUTE BASOPHILS # (AUTO) 0.1 10^3/uL (0.0-0.2); ABSOLUTE EOSINOPHILS # (AUTO) 0.4 10^3/uL (0.0-0.6); ABSOLUTE LYMPHOCYTES (AUTO) 1.6 10^3/uL (0.5-4.7); ABSOLUTE MONOCYTES (AUTO) 0.8 10^3/uL (0.1-1.4); ABSOLUTE NEUT (AUTO) 6.1 10^3/uL (1.7-8.2); BASOPHILS % (AUTO) 0.9 % (0-2); EOSINOPHILS % (AUTO) 4.4 % (0-6); HEMATOCRIT 35.9 % (36.0-47.0); HEMOGLOBIN 12.3 g/dL (12.0-15.5); LYMPHOCYTES % (AUTO) 18.3 % (13-45); MEAN CORPUSCULAR HEMOGLOBIN 29.1 pg (27.0-33.4); MEAN CORPUSCULAR HGB CONC 34.3 g/dL (32.0-36.0); MEAN CORPUSCULAR VOLUME 85 fl (80-97); MONOCYTES % (AUTO) 8.5 % (3-13); RED BLOOD COUNT 4.23 10^6/uL (3.72-5.28); RED CELL DISTRIBUTION WIDTH 14.8 % (11.5-14.0); SEGMENTED NEUTROPHILS % (AUTO) 67.9 % (42-78); TOTAL CELLS COUNTED % (AUTO) 100 %
[2018-07-03 13:47] LABS: APPEARANCE,URINE SLIGHTLY-CLOUDY; BILIRUBIN,URINE NEGATIVE (NEGATIVE); COLOR,URINE STRAW; GLUCOSE, URINE NEGATIVE (NEGATIVE); KETONES,URINE NEGATIVE (NEGATIVE); LEUKOCYTE ESTERASE,URINE LARGE (NEGATIVE); NITRITE,URINE NEGATIVE (NEGATIVE); PROTEIN,URINE NEGATIVE (NEGATIVE); URINE SPECIFIC GRAVITY 1.005; UROBILINOGEN,URINE NEGATIVE mg/dL (<2.0)
[2018-07-03 13:57] LABS: ALANINE AMINOTRANSFERASE 12 U/L (9-52); ALKALINE PHOSPHATASE 81 U/L (38-126); ANION GAP 5 (5-19); ASPARTATE AMINO TRANSFERASE 23 U/L (14-36); BILIRUBIN,DIRECT 0.3 mg/dL (0.0-0.4); BILIRUBIN,TOTAL 0.4 mg/dL (0.2-1.3); BLOOD UREA NITROGEN 29 mg/dL (7-20); CALCIUM 9.4 mg/dL (8.4-10.2); CARBON DIOXIDE 26 mmol/L (22-30); CHLORIDE 108 mmol/L (98-107); GLUCOSE 115 mg/dL (75-110); POTASSIUM 4.5 mmol/L (3.6-5.0); SODIUM 138.6 mmol/L (137-145); TOTAL PROTEIN 5.8 g/dL (6.3-8.2)
[2018-07-03 14:01] LABS: PLATELET COUNT 156 10^3/uL (150-450)
[2018-07-03] MEDS ORDERED: CEFTRIAXONE 1 GM/D5W RTU 1 GM/50 ML RTUPB IV ONE (15:00)
[2018-07-03] MEDS ORDERED: LOSARTAN POTASSIUM 25 MG TABLET PO ONE (15:09)
[2018-07-03] MEDS ORDERED: METOPROLOL TARTRATE 50 MG TABLET PO ONE (15:09)
[2018-07-03] MEDS ORDERED: CLONIDINE HCL 0.1 MG TABLET PO ONE (17:11)
--- NOTE | 2018-07-03 18:40 | ER Document Report ---
ED General - General Chief Complaint: Urinary Problem Stated Complaint: RECTAL BLEEDING Time Seen by Provider: 07/03/18 11:49 Primary Care Provider: MADDY PENALOZA DO [Primary Care Provider] - Follow up as needed Mode of Arrival: Medic Information source: Patient, Relative - Daughter Notes: Patient is a delightful 88-year-old female who presents to the emergency d [facility] from [facility] with what staff reported as possible rectal bleeding. Patient has an ongoing diagnosis of colorectal cancer and has multiple masses near the anus. Patient reports that her cancer is untreatable per her oncologist. Her daughter at bedside agrees with this statement. Patient also has an ostomy bag. Patient reports ostomy is working without difficulty. She does report some thin stools from the rectum as well. Patient also has a Grullon in place which she states has had very cloudy urine, states the Grullon was supposed to be changed several weeks ago however the nursing staff it [place] allegedly neglected to change this. Patient is alert, oriented and denies any acute symptoms whatsoever, states that she feels fine. TRAVEL OUTSIDE OF THE [place] IN LAST 30 DAYS: No - Related Data Allergies/Adverse Reactions: codeine Allergy (Verified 10/05/17 00:22) Penicillins Allergy (Verified 10/05/17 00:22) Past Medical History - General Information source: Patient, Relative - Daughter - Social History Smoking Status: Never Smoker Frequency of alcohol use: None Drug Abuse: None Family History: Hypertension Patient has suicidal ideation: No Patient has homicidal ideation: No - Past Medical History Cardiac Medical History: Reports: Hx Heart Attack, Hx Hypercholesterolemia, Hx Hypertension Pulmonary Medical History: Reports: Hx Asthma Renal/ Medical History: Denies: Hx Peritoneal Dialysis GI Medical History: Reports: Hx Gastroesophageal Reflux Disease Musculoskeletal Medical History: Reports Hx Arthritis - OA Skin Medical History: Reports Hx MRSA Psychiatric Medical History: Denies: Hx Depression Infectious Medical History: Reports: Hx MRSA Past Surgical History: Reports: Hx Abdominal Surgery - colostomly Jul 2017, Hx Appendectomy, Hx Hysterectomy, Hx Orthopedic Surgery - R hip replacement, Hx Tonsillectomy Review of Systems - Review of Systems Constitutional: No symptoms reported. denies: Chills, Fever EENT: No symptoms reported Cardiovascular: No symptoms reported Respiratory: No symptoms reported Gastrointestinal: No symptoms reported. denies: Diarrhea, Nausea, Vomiting, Constipation Genitourinary: No symptoms reported. denies: Dysuria, Frequency, Flank pain Female Genitourinary: No symptoms reported Musculoskeletal: No symptoms reported Skin: No symptoms reported Hematologic/Lymphatic: No symptoms reported Neurological/Psychological: No symptoms reported Physical Exam - Vital signs Vitals: Temp Pulse Resp BP Pulse Ox 97.7 F 50 L 16 210/76 H 98 07/03/18 11:41 07/03/18 11:41 07/03/18 11:41 07/03/18 11:41 07/03/18 11:41 - Notes Notes: PHYSICAL EXAMINATION: GENERAL: Well-appearing, well-nourished and in no acute distress. HEAD: Atraumatic, normocephalic. EYES: Pupils equal round and reactive to light, extraocular movements intact, conjunctiva are normal. ENT: Nares patent, oropharynx clear without exudates. Moist mucous membranes. NECK: Normal range of motion, supple without lymphadenopathy LUNGS: Breath sounds clear to auscultation bilaterally and equal. No wheezes rales or rhonchi. HEART: Regular rate and rhythm without murmurs ABDOMEN: Soft, nontender, nondistended abdomen. No guarding, no rebound. No masses appreciated. Ostomy to left upper quadrant. Female : No CVA tenderness. Grullon in place. Musculoskeletal: Normal range of motion, no pitting or edema. No cyanosis. NEUROLOGICAL: Cranial nerves grossly intact. Normal speech, normal gait. Normal sensory, motor exams PSYCH: Normal mood, normal affect. SKIN: Warm, Dry, normal turgor, no rashes or lesions noted. Course - Re-evaluation Re-evalutation: Patient is alert, oriented and nontoxic in appearance. She currently denies any symptoms. She reports that the staff at [facility] was changing her brief when they noted blood in her stool. Patient reports that she has multiple bleeding areas near the rectum from her ongoing cancer diagnosis which is untreatable. Patient denies any active bleeding that she is aware of. She states she has normal brown stools in her ostomy bag and she does not understand how she could have a GI bleed. Patient's physical examination is unremarkable other than the ostomy to the left upper quadrant which was tested for Hemoccult and is negative. Patient does have multiple sores to the rectal area that do appear to be bleeding. Her Grullon catheter was changed and the urine specimen was sent to the lab which appears to be infected. All other labs are unremarkable as recorded. Patient did have hypertension on arrival, she does have a history of hypertension, states her detention gave her her blood pressure medicines early this morning. I will give patient a dose of her blood pressure medications here in the emergency department with plans to discharge patient home once she has an acceptable blood pressure. After multiple rounds of blood pressure medications patient's blood pressure has come down approximately 20 points systolic. Patient continues to be completely asymptomatic. Patient will [facility] Patient's daughter is at bedside and agrees with same. - Vital Signs Vital signs: Temp Pulse Resp BP Pulse Ox 98.5 F 50 L 13 161/54 H 96 07/03/18 20:23 07/03/18 11:41 07/03/18 20:01 07/03/18 20:01 07/03/18 20:01 - Laboratory Result Diagrams: 07/03/18 13:06 07/03/18 13:06 Laboratory results interpreted by me: 07/03/18 07/03/18 07/03/18 12:47 13:06 13:06 Hct 35.9 L RDW 14.8 H Chloride 108 H BUN 29 H Glucose 115 H Total Protein 5.8 L Albumin 3.0 L Urine Blood MODERATE H Ur Leukocyte Esterase LARGE H Discharge - Discharge Clinical Impression: Ostomy concern Hypertension Qualifiers: Hypertension type: unspecified Qualified Code(s): I10 - Essential (primary) hypertension Condition: Stable Disposition: HOME, SELF-CARE Additional Instructions: There is no blood in the ostomy. There is some bleeding near the rectum which is consistent with your current diagnosis of cancer. Your blood pressure was elevated in the emergency room today. Please make sure that you get all your regularly prescribed medications when you return to [place]. Your Grullon was also changed today. You were given 1 g of Rocephin IV as your urine appeared to be mildly infected. A urine culture will be sent and someone will call the facility within the next 48-72 hours if there is any bacteria found in the urine. Referrals: MADDY PENALOZA, DO [Primary Care Provider] - Follow up as needed
[2018-07-03 20:07] VITALS: BP 161/54
== END 2018-07-03 20:23 | disposition home or self-care (01) ==
LOC: ER 11:33
DX: K62.5 Hemorrhage of anus and rectum (principal); I10 Essential (primary) hypertension; Y83.3 Surgical operation with formation of external stoma as the cause of abnormal reaction of the patient, or of later complication, without mention of misadventure at the time of the procedure; J45.909 Unspecified asthma, uncomplicated
CPT/HCPCS: 99284; 51702; 96365; 36415; 87086; 85025; 87088; 80053; 81001; 87186; A9270 ×4; J0696

== ENCOUNTER 2019-03-11 08:21 | Inpatient (IN) | payer MEDICARE, MEDICAID ==
[2019-03-11 08:58] LABS: HEMATOCRIT 33.9 % (36.0-47.0); HEMOGLOBIN 11.3 g/dL (12.0-15.5); MEAN CORPUSCULAR HEMOGLOBIN 28.8 pg (27.0-33.4); MEAN CORPUSCULAR HGB CONC 33.5 g/dL (32.0-36.0); MEAN CORPUSCULAR VOLUME 86 fl (80-97); PLATELET COUNT 152 10^3/uL (150-450); RED BLOOD COUNT 3.94 10^6/uL (3.72-5.28); RED CELL DISTRIBUTION WIDTH 15.5 % (11.5-14.0); WHITE BLOOD COUNT 14.2 10^3/uL (4.0-10.5)
[2019-03-11] MEDS ORDERED: DILTIAZEM HCL/D5W 125 MG/125 ML RTUINJ IV PRN (09:09)
[2019-03-11] MEDS ORDERED: DILTIAZEM HCL INJ 25 MG/5 ML VIAL IV ONE (09:09)
[2019-03-11 09:14] LABS: ALBUMIN 2.5 g/dL (3.5-5.0); ALKALINE PHOSPHATASE 103 U/L (38-126); ANION GAP 8 (5-19); ASPARTATE AMINO TRANSFERASE 36 U/L (14-36); BILIRUBIN,DIRECT 0.2 mg/dL (0.0-0.4); BILIRUBIN,TOTAL 0.7 mg/dL (0.2-1.3); BLOOD UREA NITROGEN 60 mg/dL (7-20); CALCIUM 9.7 mg/dL (8.4-10.2); CARBON DIOXIDE 22 mmol/L (22-30); CHLORIDE 102 mmol/L (98-107); CREATINE KINASE 41 U/L (30-135); GLUCOSE 130 mg/dL (75-110); POTASSIUM 4.5 mmol/L (3.6-5.0); TOTAL PROTEIN 5.5 g/dL (6.3-8.2)
[2019-03-11 09:15] LABS: ABSOLUTE LYMPHOCYTES# (MANUAL) 0.4 10^3/uL (0.5-4.7); BAND NEUTROPHILS % (MANUAL) 1 % (3-5); BASOPHILS % (MANUAL) 0 % (0-2); EOSINOPHILS % (MANUAL) 0 % (0-6); LYMPHOCYTES % (MANUAL) 3 % (13-45); MONOCYTES % (MANUAL) 7 % (3-13); SEGMENTED NEUTROPHILS % (MAN) 89 % (42-78); TOTAL CELLS COUNTED 100
[2019-03-11 09:16] LABS: ANISOCYTOSIS SLIGHT; PLATELET COMMENT ADEQUATE
--- NOTE | 2019-03-11 09:20 | ER Document Report ---
ED General - General Chief Complaint: Chest Pain Stated Complaint: CHEST DISCOMFORT Time Seen by Provider: 03/11/19 08:42 Primary Care Provider: LUDIVINA ZAIDI MD [Primary Care Provider] - Follow up as needed TRAVEL OUTSIDE OF THE [place] IN LAST 30 DAYS: No - HPI Notes: Patient is an 88-year-old female who [facility] the [facility] She woke this morning with chest pain. She points to her substernal chest, states it radiates through to her back and up to the left side of her neck. She describes it as a heaviness and pressure. She rates it a 2 out of 10. Nothing seems to make it better or worse. She believes that she has had pain similar to this in the past, but she really cannot quantify or qualify this for me in any way. She did have nausea with one episode of emesis prior to arrival with this pain. Patient's daughter relates that she believes there is something wrong with her ostomy. She states her abdomen looks more distended to her than normal. - Related Data Allergies/Adverse Reactions: codeine Allergy (Verified 03/11/19 08:52) Penicillins Allergy (Verified 03/11/19 08:52) Home Medications: Multivitamin, K-Dur 20 mEq twice daily, Symbicort 80/4.52 puffs twice a day, metoprolol 50 mg twice daily, Colace 100 mg twice daily as n eeded, losartan 50 mg twice daily, MiraLAX as needed Protostat 30 mL p.o. daily clindamycin 300 mg p.o. 4 times daily cellulitis Ultram 50 mg every 6 hours as needed pain, Zofran 4 mg every 8 hours as needed nausea Past Medical History - General Information source: Patient, Relative - Social History Smoking Status: Never Smoker Chew tobacco use (# tins/day): No Frequency of alcohol use: None Drug Abuse: None Family History: Hypertension Patient has suicidal ideation: No Patient has homicidal ideation: No - Past Medical History Cardiac Medical History: Reports: Hx Heart Attack, Hx Hypercholesterolemia, Hx Hypertension Pulmonary Medical History: Reports: Hx Asthma Renal/ Medical History: Denies: Hx Peritoneal Dialysis Malignancy Medical History: Reports: Other - Rectal cancer with diverting ostomy GI Medical History: Reports: Hx Gastroesophageal Reflux Disease Musculoskeletal Medical History: Reports Hx Arthritis - OA Skin Medical History: Reports Hx MRSA Psychiatric Medical History: Denies: Hx Depression Infectious Medical History: Reports: Hx MRSA Past Surgical History: Reports: Hx Abdominal Surgery - colostomly Jul 2017, Hx Appendectomy, Hx Hysterectomy, Hx Orthopedic Surgery - R hip replacement, Hx Tonsillectomy Review of Systems - Review of Systems Constitutional: No symptoms reported EENT: No symptoms reported Cardiovascular: See HPI Respiratory: No symptoms reported Gastrointestinal: See HPI Genitourinary: No symptoms reported Musculoskeletal: No symptoms reported Skin: No symptoms reported Neurological/Psychological: No symptoms reported Physical Exam - Vital signs Vitals: Pulse Ox 97 03/11/19 08:32 - Notes Notes: Is an 88-year-old female who appears her stated age in no acute distress. Head is normocephalic and atraumatic, pupils are equal round, reactive to light. Oral mucosa is moist. Neck is supple without meningismus. Heart is irregularly irregular, tachycardic. Lungs are clear to station bilaterally. Abdomen is obese. She has a colostomy noted in the left abdomen with pink stoma, brown liquid stool. No significant tenderness or distention that I can appreciate. Extremities show 2+ pitting edema with diffuse erythema. They are tender to palpation. Peripheral pulses are equal. Course - Re-evaluation Re-evalutation: 03/11/19 13:35 Patient is an 88-year-old female who presented to the emergency department for evaluation of chest pain. I was concerned as it did sound somewhat anginal in nature. On arrival, however, she was found to be in rapid atrial fibrillation. Upon slowing of her heart rate, her pain did improve, but did not totally resolve. Unfortunately her blood pressure remained borderline, at 106/66. I did not feel comfortable administering nitrates to this patient. She was given morphine and felt significantly improved. Initial troponin was positive, however second troponin trended down. On a low-dose Cardizem drip, patient's heart rate is remained between 85 and 102. 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 Will contact medicine for admission for rapid atrial fibrillation. 03/11/19 13:[address] Moran, he will come to evaluate patient. 03/11/19 14:40 Dr. Moran will admit the patient to [facility] - Vital Signs Vital signs: Temp Pulse Resp BP Pulse Ox 16 110/74 95 03/11/19 14:01 03/11/19 14:00 03/11/19 13:59 - Laboratory Result Diagrams: 03/11/19 08:42 03/11/19 08:42 Laboratory results interpreted by me: 03/11/19 03/11/19 08:42 08:42 WBC 14.2 H Hgb 11.3 L Hct 33.9 L RDW 15.5 H Seg Neuts % (Manual) 89 H Band Neutrophils % 1 L Lymphocytes % (Manual) 3 L Abs Neuts (Manual) 12.8 H Abs Lymphs (Manual) 0.4 L Sodium 132.2 L BUN 60 H Creatinine 1.28 H Est GFR ( Amer) 48 L Est GFR (MDRD) Non-Af 39 L Glucose 130 H Total Protein 5.5 L Albumin 2.5 L - Diagnostic Test Radiology reviewed: Image reviewed, Reports reviewed Radiology results interpreted by me: 03/11/19 13:36 Chest X-Ray 03/11/19 00:00 IMPRESSION: NO ACUTE RADIOGRAPHIC FINDING IN THE CHEST. - EKG Interpretation by Me Additional EKG results interpreted by me: 03/11/19 09:22 Atrial fibrillation with a rate of 124 bpm. Left axis deviation, left bundle branch block. No old studies available for comparison. Discharge - Discharge Clinical Impression: Rapid atrial fibrillation Condition: Stable Disposition: ADMITTED INPATIENT Admitting Provider: Dean (Hospitalist) Unit Admitted: IMCU Referrals: LUDIVINA ZAIDI MD [Primary Care Provider] - Follow up as needed
[2019-03-11 09:24] LABS: INTERNATIONAL RATION (INR) 1.07; PROTHROMBIN TIME 13.9 SEC (11.4-15.4)
[2019-03-11 09:25] LABS: PARTIAL THROMBOPLASTIN TIME 28.1 SEC (23.5-35.8)
[2019-03-11 09:26] LABS: CREATINE KINASE MB 0.98 ng/mL (<4.55)
--- NOTE | 2019-03-11 09:30 | RADIOLOGY REPORT (SQ) ---
EXAM DESCRIPTION: CHEST SINGLE VIEW COMPLETED DATE/TIME: 03/11/2019 9:21 am REASON FOR STUDY: chest pain COMPARISON: 05/07/2016 EXAM PARAMETERS: NUMBER OF VIEWS: One view. TECHNIQUE: Single frontal radiographic view of the chest acquired. RADIATION DOSE: NA LIMITATIONS: None. FINDINGS: LUNGS AND PLEURA: No opacities, masses or pneumothorax. No pleural effusion. MEDIASTINUM AND HILAR STRUCTURES: No masses. Contour normal. HEART AND VASCULAR STRUCTURES: Heart normal in size. Normal vasculature. BONES: No acute findings. HARDWARE: None in the chest. OTHER: No other significant finding. IMPRESSION: NO ACUTE RADIOGRAPHIC FINDING IN THE CHEST. TECHNICAL DOCUMENTATION: JOB ID: [id number] [employer]- All Rights Reserved Reading location - IP/workstation name: [email or web address]
[2019-03-11 09:35] LABS: TROPONIN I 0.037 ng/mL
[2019-03-11] MEDS ORDERED: MORPHINE SULFATE 10 MG/ML INJ IV ONE (11:01)
[2019-03-11] MEDS ORDERED: ONDANSETRON HCL INJ/PF 4 MG/2 ML SDV IV ONE (11:02)
--- NOTE | 2019-03-11 13:09 | EKG REPORT ---
SEVERITY:- ABNORMAL ECG - ATRIAL FIBRILLATION, V-RATE 75-155 LEFT BUNDLE BRANCH BLOCK : Confirmed by: Michelle Whiting MD 11-Mar-2019 13:08:36
[2019-03-11] MEDS ORDERED: TRAMADOL HCL 50 MG TABLET PO PRN (15:13)
[2019-03-11] MEDS ORDERED: ALBUTEROL SULFATE HFA (90 MCG/PUFF) 200 PUFF/8.5 GM MDI IH PRN (15:13)
--- NOTE | 2019-03-11 15:34 | PDOC H&P ---
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 She was put on the monitor and was found to have a tachycardia. It turns out to be in atrial fibrillation and RVR. She was put on a Cardizem drip in the ER and as her heart rate came down her chest discomfort resolved. She had a mild elevation in her troponin in the ER that was already trending down on the second 1. She is being admitted for rate control. It is documented that she has a history of [place] but she denies any history of any arrhythmia. Past Medical History Cardiac Medical History: Reports: Myocardial Infarction, Hyperlipidema, Hypertension Pulmonary Medical History: Reports: Asthma Malignancy Medical History: Reports: Other - Rectal cancer with diverting ostomy GI Medical History: Reports: Gastroesophageal Reflux Disease Musculoskeltal Medical History: Reports: Arthritis - OA Psychiatric Medical History: Denies: Depression Hematology: Reports: Anemia Infectious Medical History: Reports: Methicillin-Resistant Staph Aureus Past Surgical History Past Surgical History: Reports: Appendectomy, Hysterectomy, Orthopedic Surgery - R hip replacement, Tonsillectomy Social History Smoking Status: Never Smoker Electronic Cigarette use?: No Hx Recreational Drug Use: No Hx Prescription Drug Abuse: No Family History Family History: Hypertension Parental Family History Reviewed: Yes Children Family History Reviewed: Yes Sibling(s) Family History Reviewed.: Yes Medication/Allergy Home Medications: Albuterol Sulfate [Proair HFA] 2 puff IH QIDP PRN 10/05/17 Budesonide/Formoterol Fumarate [Symbicort HFA 80-4.5 mcg Inhaler 6.9 gm] 2 puff IH Q12 10/05/17 Docusate Sodium [Colace 100 mg Capsule] 100 mg PO BID 10/05/17 Ergocalciferol (Vitamin D2) [Drisdol 50,000 unit (1.25MG) Capsule] 50,000 units PO TH@1000 10/05/17 Multivit,Stress Formula/Zinc [Stress Formula with Zinc Tab] 1 tab PO DAILY 10/05/17 Polyethylene Glycol 3350 [Miralax Powder 17 gm/Packet] 17 gm PO QID 10/05/17 Potassium Chloride [Klor-Con 10] 20 meq PO BID 10/05/17 Furosemide [Lasix 40 mg Tablet] 40 mg PO BID 03/11/19 Losartan Potassium 50 mg PO Q12 03/11/19 Metoprolol Tartrate 50 mg PO Q12 03/11/19 Tramadol HCl [Ultram 50 mg Tablet] 50 mg PO Q6HP PRN 03/11/19 Allergies/Adverse Reactions: codeine Allergy (Verified 03/11/19 08:52) Penicillins Allergy (Verified 03/11/19 08:52) Review of Systems All systems: reviewed and no additional remarkable complaints except as stated - All systems were reviewed and were negative except as noted in the HPI Physical Exam Vital Signs: Temp Pulse Resp BP Pulse Ox 16 110/74 95 03/11/19 14:01 03/11/19 14:00 03/11/19 13:59 Intake & Output 03/10/19 03/11/19 03/12/19 06:59 06:59 06:59 Weight 97.5 kg General appearance: PRESENT: no acute distress, cooperative, disheveled, morbi dly obese Head exam: PRESENT: atraumatic, normocephalic Eye exam: PRESENT: EOMI, PERRLA. ABSENT: conjunctival injection, nystagmus, scleral icterus Ear exam: PRESENT: normal external ear exam Mouth exam: PRESENT: moist, neck supple Teeth exam: PRESENT: poor dentation Throat exam: ABSENT: post pharyngeal erythema Neck exam: PRESENT: full ROM. ABSENT: carotid bruit, JVD, lymphadenopathy, meningismus, tenderness, thyromegaly Respiratory exam: PRESENT: clear to auscultation connie, symmetrical, unlabored. ABSENT: accessory muscle use, chest wall tenderness, crackles, prolonged expiratory phas, rhonchi, tachypnea, wheezes Cardiovascular exam: PRESENT: irregular rhythm Pulses: PRESENT: normal carotid pulses Vascular exam: PRESENT: normal capillary refill GI/Abdominal exam: PRESENT: normal bowel sounds, soft. ABSENT: distended, guarding, rebound, tenderness Extremities exam: PRESENT: pedal edema, +2 edema - She has chronic leg edema. ABSENT: clubbing Musculoskeletal exam: PRESENT: normal inspection. ABSENT: deformity Neurological exam: PRESENT: alert, awake, oriented to person, oriented to place, oriented to situation, CN II-XII grossly intact Psychiatric exam: PRESENT: flat affect Skin exam: PRESENT: dry, erythema - Bilateral lower extremity edema distal to the knee and proximal to the ankle Results Laboratory Results: 03/11/19 08:42 03/11/19 08:42 03/11/19 03/11/19 03/11/19 08:42 08:42 08:42 WBC 14.2 H RBC 3.94 Hgb 11.3 L Hct 33.9 L MCV 86 MCH 28.8 MCHC 33.5 RDW 15.5 H Plt Count 152 Seg Neutrophils % Not Reportable Sodium 132.2 L Potassium 4.5 Chloride 102 Carbon Dioxide 22 Anion Gap 8 BUN 60 H Creatinine 1.28 H Est GFR ( Amer) 48 L Glucose 130 H Calcium 9.7 Total Bilirubin 0.7 AST 36 Alkaline Phosphatase 103 Total Protein 5.5 L Albumin 2.5 L TSH 1.47 03/11/19 03/11/19 03/11/19 08:42 08:42 12:46 Creatine Kinase 41 CK-MB (CK-2) 0.98 Troponin I 0.037 0.029 Impressions: Chest X-Ray 03/11/19 00:00 IMPRESSION: NO ACUTE RADIOGRAPHIC FINDING IN THE CHEST. Assessment and Plan - Diagnosis (1) Atrial fibrillation with RVR Is this a current diagnosis for this admission?: Yes Plan: She is on Lopressor at home. I am going to switch her to Toprol and increase the dose to 100 mg twice a day. Currently on a Cardizem drip we will start her Toprol and then will discontinue the Cardizem later. Her has bled score is 4, indicating a pretty high risk of bleeding, so I will not start her on anticoagulation. (2) Acute kidney injury Is this a current diagnosis for this admission?: Yes Plan: She got some IV fluids in the ER, and we are going to work to improve her circulation which should increase her renal perfusion. We will follow-up her labs in the morning. (3) Bedridden Is this a current diagnosis for this admission?: Yes Plan: She is a long-term care resident at [facility]. 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 We talked about CODE STATUS and she was afraid that if she was a DNR that they would not treat her for small problems but I told her that DNR does not mean do not treat. She is going to reconsider her CODE STATUS and was willing to have palliative care come to see her over at [facility]. - Time Time Spent with patient: 35 or more minutes - Inpatient Certification Based on my medical assessment, after consideration of the patient's comorbidities, presenting symptoms, or acuity I expect that the services needed warrant INPATIENT care.: Yes I certify that my determination is in accordance with my understanding of Medicare's requirements for reasonable and necessary INPATIENT services [42 CFR 412.3e].: Yes Medical Necessity: Significant Comorbidiites Make Outpatient Treatment Too Risky, Need Close Monitoring Due to Risk of Patient Decompensation, Need For Continuous Telemetry Monitoring, Risk of Complication if Not Cared For in Hospital
[2019-03-11 16:22] LABS: FREE T3 2.48 pg/mL (2.77-5.27); FREE T4 (FREE THYROXINE) 1.39 ng/dL (0.78-2.19)
[2019-03-11] MEDS: METOPROLOL SUCCINATE 50 MG TAB.SR.24H PO SCH (21:31)
[2019-03-11] MEDS: DOCUSATE SODIUM 100 MG CAPSULE PO SCH (21:31)
[2019-03-11] MEDS: LACTOBACILLUS ACIDOPHILUS 250 MG TAB PO SCH (21:31)
[2019-03-11] MEDS: HEPARIN SOD (PORCINE) 5,000 UNIT/ML 1 ML VIAL SUBCUT SCH (21:32)
[2019-03-11] MEDS: CLINDAMYCIN HCL 150 MG CAPSULE PO SCH (21:32)
[2019-03-11] MEDS: POLYETHYLENE GLYCOL 3350 POWDER 17 GM/1 PACKET PO SCH ×2 (21:32→21:36)
[2019-03-11] MEDS ORDERED: INFLUENZA QUAD (6MOS+) 2019-20 VAC 0.5 ML SYR IM ONE (22:00)
[2019-03-12] MEDS: CLINDAMYCIN HCL 150 MG CAPSULE PO SCH ×4 (01:49→17:24)
[2019-03-12 05:30] LABS: HEMATOCRIT 33.5 % (36.0-47.0); HEMOGLOBIN 11.3 g/dL (12.0-15.5); MEAN CORPUSCULAR HGB CONC 33.8 g/dL (32.0-36.0); MEAN CORPUSCULAR VOLUME 86 fl (80-97); PLATELET COUNT 158 10^3/uL (150-450); RED CELL DISTRIBUTION WIDTH 15.8 % (11.5-14.0); WHITE BLOOD COUNT 14.4 10^3/uL (4.0-10.5)
[2019-03-12 05:55] LABS: ANION GAP 13 (5-19); BLOOD UREA NITROGEN 68 mg/dL (7-20); CALCIUM 9.3 mg/dL (8.4-10.2); CARBON DIOXIDE 20 mmol/L (22-30); CHLORIDE 102 mmol/L (98-107); GLUCOSE 139 mg/dL (75-110); POTASSIUM 4.7 mmol/L (3.6-5.0)
[2019-03-12] MEDS: HEPARIN SOD (PORCINE) 5,000 UNIT/ML 1 ML VIAL SUBCUT SCH ×3 (06:24→21:19)
[2019-03-12] MEDS: METOPROLOL SUCCINATE 50 MG TAB.SR.24H PO SCH ×2 (09:16→21:18)
[2019-03-12] MEDS: NORMAL SALINE 1000 ML 1,000 ML IV PRN ×2 (09:16→17:24)
[2019-03-12] MEDS: DOCUSATE SODIUM 100 MG CAPSULE PO SCH ×2 (09:17→17:24)
[2019-03-12] MEDS: POLYETHYLENE GLYCOL 3350 POWDER 17 GM/1 PACKET PO SCH ×4 (09:17→21:19)
[2019-03-12] MEDS: LACTOBACILLUS ACIDOPHILUS 250 MG TAB PO SCH ×2 (09:17→17:24)
[2019-03-12] MEDS: FLUTICASONE/VILANTEROL 100-25 MCG/DOSE IH SCH (09:18)
[2019-03-12] MEDS: MULTIVITAMIN TABLET PO SCH (09:19)
[2019-03-12] MEDS ORDERED: MULTIVIT STRESS FORMULA PO SCH (10:00)
[2019-03-12] MEDS ORDERED: ZINC PO SCH (10:00)
[2019-03-12] MEDS ORDERED: [UNRECOGNIZED DRUG - OTHER] PO SCH (10:00)
[2019-03-12] MEDS: DILTIAZEM HCL 120 MG CAP.SR.24H PO SCH ×2 (10:23→21:18)
[2019-03-12] MEDS: FAMOTIDINE 20 MG TABLET PO SCH ×2 (12:10→21:18)
--- NOTE | 2019-03-12 13:38 | PDOC PROGRESS REPORT ---
Subjective Progress Note for:: 03/12/19 Subjective:: No adverse events overnight. No chest pain or shortness of breath. She still been somewhat tachycardic on the monitor. Reason For Visit: ATRIAL FIBRILLATION WITH RVR Physical Exam Vital Signs: Temp Pulse Resp BP Pulse Ox 97.8 F 103 H 20 116/57 L 100 03/12/19 03:20 03/12/19 07:00 03/12/19 03:20 03/12/19 07:00 03/12/19 03:20 Intake & Output 03/11/19 03/12/19 03/13/19 06:59 06:59 06:59 Intake Total 240 125 Output Total 1200 Balance -960 125 Weight 97.4 kg General appearance: PRESENT: no acute distress, cooperative, disheveled, morbidly obese Respiratory exam: PRESENT: clear to auscultation connie, symmetrical, unlabored. ABSENT: accessory muscle use, chest wall tenderness, crackles, prolonged expiratory phas, rhonchi, tachypnea, wheezes Cardiovascular exam: PRESENT: irregular rhythm Pulses: PRESENT: normal carotid pulses Vascular exam: PRESENT: normal capillary refill GI/Abdominal exam: PRESENT: normal bowel sounds, soft. ABSENT: distended, guarding, rebound, tenderness Extremities exam: PRESENT: pedal edema, +2 edema - She has chronic leg edema. ABSENT: clubbing Musculoskeletal exam: PRESENT: normal inspection. ABSENT: deformity Neurological exam: PRESENT: alert, awake, oriented to person, oriented to place, oriented to situation Psychiatric exam: PRESENT: flat affect Skin exam: PRESENT: dry, erythema - Bilateral lower extremity edema distal to the knee and proximal to the ankle Results Laboratory Results: 03/12/19 04:20 03/12/19 04:20 03/11/19 03/12/19 03/12/19 08:42 04:20 04:20 WBC 14.4 H RBC 3.90 Hgb 11.3 L Hct 33.5 L MCV 86 MCH 29.0 MCHC 33.8 RDW 15.8 H Plt Count 158 Sodium 134.8 L Potassium 4.7 Chloride 102 Carbon Dioxide 20 L Anion Gap 13 BUN 68 H Creatinine 1.47 H Est GFR ( Amer) 40 L Glucose 139 H Calcium 9.3 TSH Cancelled Free T4 1.39 Free T3 pg/mL 2.48 L 03/11/19 03/11/19 03/11/19 08:42 08:42 12:46 Creatine Kinase 41 CK-MB (CK-2) 0.98 Troponin I 0.037 0.029 Impressions: Chest X-Ray 03/11/19 00:00 IMPRESSION: NO ACUTE RADIOGRAPHIC FINDING IN THE CHEST. Assessment and Plan - Diagnosis (1) Atrial fibrillation with RVR Is this a current diagnosis for this admission?: Yes Plan: We have changed her from Lopressor to Toprol-XL and have increased dose to 100 mg twice a day. I am going to start her on some oral Cardizem. If her blood pressure tolerates that, we will titrate the dose as effective. If her blood pressure does not allow, will probably have to start digoxin, or possibly amiodarone. (2) Acute kidney injury Is this a current diagnosis for this admission?: Yes Plan: Her BUN and creatinine are still little elevated, so I am going to start her on some IV fluids because her oral intake is not very good. Avoiding nephrotoxic medications. (3) Bedridden Is this a current diagnosis for this admission?: Yes Plan: She is a long-term care resident at [facility]. 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 She decided last night she wants to be a DNR. She agreed to have palliative care come to see her at [facility]. Were doing wet-to-dry dressings on her wound. - Time Time Spent with patient: 25-34 minutes
[2019-03-13] MEDS: CLINDAMYCIN HCL 150 MG CAPSULE PO SCH ×3 (01:06→12:12)
[2019-03-13] MEDS: NORMAL SALINE 1000 ML 1,000 ML IV PRN ×2 (01:37→09:35)
[2019-03-13] MEDS: HEPARIN SOD (PORCINE) 5,000 UNIT/ML 1 ML VIAL SUBCUT SCH ×2 (05:41→14:29)
[2019-03-13 05:50] LABS: HEMATOCRIT 31.3 % (36.0-47.0); HEMOGLOBIN 10.5 g/dL (12.0-15.5); MEAN CORPUSCULAR HGB CONC 33.5 g/dL (32.0-36.0); MEAN CORPUSCULAR VOLUME 87 fl (80-97); PLATELET COUNT 177 10^3/uL (150-450); RED BLOOD COUNT 3.61 10^6/uL (3.72-5.28); RED CELL DISTRIBUTION WIDTH 15.7 % (11.5-14.0)
[2019-03-13 06:15] LABS: ANION GAP 10 (5-19); BLOOD UREA NITROGEN 58 mg/dL (7-20); CALCIUM 8.6 mg/dL (8.4-10.2); CARBON DIOXIDE 20 mmol/L (22-30); CHLORIDE 102 mmol/L (98-107); GLUCOSE 106 mg/dL (75-110); POTASSIUM 4.2 mmol/L (3.6-5.0)
[2019-03-13] MEDS: FAMOTIDINE 20 MG TABLET PO SCH (09:35)
[2019-03-13] MEDS: LACTOBACILLUS ACIDOPHILUS 250 MG TAB PO SCH (09:35)
[2019-03-13] MEDS: MULTIVITAMIN TABLET PO SCH (09:35)
[2019-03-13] MEDS: POLYETHYLENE GLYCOL 3350 POWDER 17 GM/1 PACKET PO SCH ×2 (09:35→14:29)
[2019-03-13] MEDS: METOPROLOL SUCCINATE 50 MG TAB.SR.24H PO SCH (09:35)
[2019-03-13] MEDS: DOCUSATE SODIUM 100 MG CAPSULE PO SCH (09:35)
[2019-03-13] MEDS: FLUTICASONE/VILANTEROL 100-25 MCG/DOSE IH SCH (09:35)
[2019-03-13] MEDS: DILTIAZEM HCL 120 MG CAP.SR.24H PO SCH (09:35)
--- NOTE | 2019-03-13 14:38 | PDOC TRANSFER SUMMARY ---
Impression - Admit/DC Date/PCP Admission Date/Primary Care Provider: 03/11/19 14:51 RAYMOND VALE MD Discharge Date: 03/13/19 - Discharge Diagnosis (1) Atrial fibrillation with RVR Is this a current diagnosis for this admission?: Yes (2) Acute kidney injury Is this a current diagnosis for this admission?: Yes (3) Bedridden Is this a current diagnosis for this admission?: Yes (4) Squamous cell carcinoma of anus Is this a current diagnosis for this admission?: Yes - Additional Information Resuscitation Status: Do Not Resuscitate Discharge Diet: Cardiac Discharge Activity: Supervised Activity Referrals: LUDIVINA ZAIID MD [NO LOCAL MD] - Follow up as needed Home Medications: Albuterol Sulfate [Proair HFA] 2 puff IH QIDP PRN 10/05/17 Budesonide/Formoterol Fumarate [Symbicort HFA 80-4.5 mcg Inhaler 6.9 gm] 2 puff IH Q12 10/05/17 Docusate Sodium [Colace 100 mg Capsule] 100 mg PO BID 10/05/17 Ergocalciferol (Vitamin D2) [Drisdol 50,000 unit (1.25MG) Capsule] 50,000 units PO TH@1000 10/05/17 Multivit,Stress Formula/Zinc [Stress Formula with Zinc Tab] 1 tab PO DAILY 10/05/17 Polyethylene Glycol 3350 [Miralax Powder 17 gm/Packet] 17 gm PO QID 10/05/17 Potassium Chloride [Klor-Con 10] 20 meq PO BID 10/05/17 Tramadol HCl [Ultram 50 mg Tablet] 50 mg PO Q6HP PRN 03/11/19 Clindamycin HCl [Cleocin 150 mg Capsule] 300 mg PO Q6 capsule 03/13/19 Diltiazem HCl [Cardizem Cd 120 mg Capsule] 120 mg PO Q12 cap.sr.24h 03/13/19 Furosemide [Lasix 40 mg Tablet] 40 mg PO DAILY #0 03/13/19 Lactobacillus Acidophilus [Bacid 250 mg Tablet] 500 mg PO BID tab 03/13/19 Metoprolol Succinate [Toprol Xl 50 mg Tab.sr] 100 mg PO Q12 tab.sr.24h 03/13/19 History of Present Illiness History of Present Illness: DOMINICK LUQUE is a 88 year old female with a history of hypertension, mild chronic kidney disease, morbid obesity, and 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 She was put on the monitor and was found to have a tachycardia. It turns out to be in atrial fibrillation and RVR. She was put on a Cardizem drip in the ER and as her heart rate came down her chest discomfort resolved. She had a mild elevation in her troponin in the ER that was already trending down on the second 1. She is being admitted for rate control. It is documented that she has a history of SD but she denies any history of any arrhythmia. Hospital Course Hospital Course: Her Lopressor was switched over to Toprol-XL and dosage increased. This did not quite control her heart rate, so we put her on some p.o. Cardizem in addition and discontinued her losartan for her blood pressure. Combination of these 2 medications but a good job of keeping her heart rate under control without dropping her blood pressure too low. She is not a candidate for anticoagulation. Her large wound associated with her squamous cell carcinoma of the anus was treated with wet-to-dry dressings. We continue clindamycin for her lower extremity cellulitis which is already been initiated outside of the hospital, and we added probiotic. Her comorbid conditions were managed with her home medications. While she was here we talked about CODE STATUS, and in the presence of her daughter she ultimately decided that she wanted to be a DNR. Her labs and exam were reassuring and she was discharged in fair condition. Physical Exam Vital Signs: Temp Pulse Resp BP Pulse Ox 97.9 F 69 18 100/49 L 98 03/13/19 11:37 03/13/19 11:37 03/13/19 11:37 03/13/19 11:37 03/13/19 11:37 Intake & Output 03/12/19 03/13/19 03/14/19 06:59 06:59 06:59 Intake Total 240 2605 996 Output Total 1200 1600 Balance -960 1005 996 Weight 97.4 kg 98.8 kg General appearance: PRESENT: no acute distress, cooperative, disheveled, morbidly obese Respiratory exam: PRESENT: clear to auscultation connie, symmetrical, unlabored. ABSENT: accessory muscle use, chest wall tenderness, crackles, prolonged expiratory phase, rhonchi, tachypnea, wheezes Cardiovascular exam: PRESENT: irregular rhythm Pulses: PRESENT: normal carotid pulses Vascular exam: PRESENT: normal capillary refill GI/Abdominal exam: PRESENT: normal bowel sounds, soft. ABSENT: distended, guarding, rebound, tenderness Extremities exam: PRESENT: pedal edema, +2 edema - She has chronic leg edema. ABSENT: clubbing Musculoskeletal exam: PRESENT: normal inspection. ABSENT: deformity Neurological exam: PRESENT: alert, awake, oriented to person, oriented to place Psychiatric exam: PRESENT: flat affect Skin exam: PRESENT: dry, erythema - Bilateral lower extremity edema distal to the knee and proximal to the ankle Results Laboratory Results: WBC 11.0 10^3/uL (4.0-10.5) H 03/13/19 04:42 RBC 3.61 10^6/uL (3.72-5.28) L 03/13/19 04:42 Hgb 10.5 g/dL (12.0-15.5) L 03/13/19 04:42 Hct 31.3 % (36.0-47.0) L 03/13/19 04:42 MCV 87 fl (80-97) 03/13/19 04:42 MCH 29.0 pg (27.0-33.4) 03/13/19 04:42 MCHC 33.5 g/dL (32.0-36.0) 03/13/19 04:42 RDW 15.7 % (11.5-14.0) H 03/13/19 04:42 Plt Count 177 10^3/uL (150-450) 03/13/19 04:42 Lymph % (Auto) Not Reportable 03/11/19 08:42 [place] % (Auto) Not Reportable 03/11/19 08:42 Eos % (Auto) Not Reportable 03/11/19 08:42 Baso % (Auto) Not Reportable 03/11/19 08:42 Absolute Neuts (auto) Not Reportable 03/11/19 08:42 Absolute Lymphs (auto) Not Reportable 03/11/19 08:42 Absolute Monos (auto) Not Reportable 03/11/19 08:42 Absolute Eos (auto) Not Reportable 03/11/19 08:42 Absolute Basos (auto) Not Reportable 03/11/19 08:42 Total Counted 100 03/11/19 08:42 Seg Neutrophils % Not Reportable 03/11/19 08:42 Seg Neuts % (Manual) 89 % (42-78) H 03/11/19 08:42 Band Neutrophils % 1 % (3-5) L 03/11/19 08:42 Lymphocytes % (Manual) 3 % (13-45) L 03/11/19 08:42 Monocytes % (Manual) 7 % (3-13) 03/11/19 08:42 Eosinophils % (Manual) 0 % (0-6) 03/11/19 08:42 Basophils % (Manual) 0 % (0-2) 03/11/19 08:42 Abs Neuts (Manual) 12.8 10^3/uL (1.7-8.2) H 03/11/19 08:42 Abs Lymphs (Manual) 0.4 10^3/uL (0.5-4.7) L 03/11/19 08:42 Abs Monocytes (Manual) 1.0 10^3/uL (0.1-1.4) 03/11/19 08:42 Absolute Eos (Manual) 0.0 10^3/uL (0.0-0.6) 03/11/19 08:42 Abs Basophils (Manual) 0.0 10^3/uL (0.0-0.2) 03/11/19 08:42 Platelet Comment ADEQUATE 03/11/19 08:42 Anisocytosis SLIGHT 03/11/19 08:42 PT 13.9 SEC (11.4-15.4) 03/11/19 08:42 INR 1.07 03/11/19 08:42 APTT 28.1 SEC (23.5-35.8) 03/11/19 08:42 Sodium 131.5 mmol/L (137-145) L 03/13/19 04:42 Potassium 4.2 mmol/L (3.6-5.0) 03/13/19 04:42 Chloride 102 mmol/L (98-107) 03/13/19 04:42 Carbon Dioxide 20 mmol/L (22-30) L 03/13/19 04:42 Anion Gap 10 (5-19) 03/13/19 04:42 BUN 58 mg/dL (7-20) H 03/13/19 04:42 Creatinine 1.23 mg/dL (0.52-1.25) 03/13/19 04:42 Est GFR ( Amer) 50 (>60) L 03/13/19 04:42 Est GFR (MDRD) Non-Af 41 (>60) L 03/13/19 04:42 Glucose 106 mg/dL (75-110) 03/13/19 04:42 Calcium 8.6 mg/dL (8.4-10.2) 03/13/19 04:42 Total Bilirubin 0.7 mg/dL (0.2-1.3) 03/11/19 08:42 Direct Bilirubin 0.2 mg/dL (0.0-0.4) 03/11/19 08:42 Neonat Total Bilirubin Not Reportable 03/11/19 08:42 Neonat Direct Bilirubin Not Reportable 03/11/19 08:42 Neonat Indirect Bili Not Reportable 03/11/19 08:42 AST 36 U/L (14-36) 03/11/19 08:42 ALT 28 U/L (<35) 03/11/19 08:42 Alkaline Phosphatase 103 U/L (38-126) 03/11/19 08:42 Creatine Kinase 41 U/L (30-135) 03/11/19 08:42 CK-MB (CK-2) 0.98 ng/mL (<4.55) 03/11/19 08:42 Troponin I 0.029 ng/mL 03/11/19 12:46 Total Protein 5.5 g/dL (6.3-8.2) L 03/11/19 08:42 Albumin 2.5 g/dL (3.5-5.0) L 03/11/19 08:42 TSH 1.47 uIU/mL (0.47-4.68) 03/11/19 08:42 TSH Cancelled 03/11/19 08:42 Free T4 1.39 ng/dL (0.78-2.19) 03/11/19 08:42 Free T3 pg/mL 2.48 pg/mL (2.77-5.27) L 03/11/19 08:42 03/11/19 03/11/19 08:42 12:46 CK-MB (CK-2) 0.98 Troponin I 0.037 0.029 Impressions: Chest X-Ray 03/11/19 00:00 IMPRESSION: NO ACUTE RADIOGRAPHIC FINDING IN THE CHEST. Plan Time Spent: Greater than 30 Minutes Stroke Is this a Stroke Patient?: No Acute Heart Failure - Is this a Heart Failure Patient?: No
[2019-03-13 16:37] VITALS: BP 124/41
== END 2019-03-13 16:40 | DRG 309 ==
LOC: ER 08:21 → EH 14:51 → 3N 16:43
PROVIDERS: ADMIT Family Medicine; ATTEND Family Medicine
DX: I48.91 Unspecified atrial fibrillation (principal); N17.9 Acute kidney failure, unspecified; C21.8 Malignant neoplasm of overlapping sites of rectum, anus and anal canal; Z74.01 Bed confinement status; I12.9 Hypertensive chronic kidney disease with stage 1 through stage 4 chronic kidney disease, or unspecified chronic kidney disease; N18.9 Chronic kidney disease, unspecified; E66.01 Morbid (severe) obesity due to excess calories; E78.5 Hyperlipidemia, unspecified; J45.909 Unspecified asthma, uncomplicated; M19.90 Unspecified osteoarthritis, unspecified site; Z66 Do not resuscitate; Z90.710 Acquired absence of both cervix and uterus; Z93.3 Colostomy status; Z88.0 Allergy status to penicillin; Z88.6 Allergy status to analgesic agent; I25.2 Old myocardial infarction; Z86.14 Personal history of Methicillin resistant Staphylococcus aureus infection; Z90.49 Acquired absence of other specified parts of digestive tract; Z96.641 Presence of right artificial hip joint; Z68.35 Body mass index [BMI] 35.0-35.9, adult
CPT/HCPCS: 36415; 71045; 80048; 80053; 82550; 82553; 84439; 84443; 84481; 84484; 85025; 85027; 85610; 85730; 93005; 93010; 96365; 96366; 96375; 96376; 99285; J1644; J2270; J2405; J3490; J7030